=== PATIENT | female | born 1930 | race Caucasian/White ===

== ENCOUNTER 2019-03-15 21:56 | Inpatient (IN) | payer MEDICARE ==
[~2019-03-15] VITALS: Ht 154.9 cm; Wt 48.2 kg
[~2019-03-15 21:56] MED LIST: DIGO25TA PO; LASIX PO; LIPITOR PO; MONOPRIL PO; TOPROL PO; XARE20TA PO
[2019-03-15] MEDS ORDERED: AMLO10TA5 PO (22:25)
[2019-03-15] MEDS ORDERED: TORS10TA3 PO (22:25)
[2019-03-15] MEDS ORDERED: FOSI20TA79 GT (22:25)
[2019-03-15] MEDS ORDERED: METO1TAB7 PO (22:25)
[2019-03-15 22:36] LABS: BASO % 0.3 % (0.0-1.0); EOS # 0.1 10^3/uL (0.0-0.50); EOS % 0.7 % (0.0-3.0); HEMATOCRIT 35.3 % (36.0-47.0); HEMOGLOBIN 11.3 g/dl (12.0-15.5); LYMPH # 0.9 10^3/uL (1.5-4.5); LYMPH % 9.9 % (24.0-44.0); MEAN CORPUSCULAR HEMOGLOBIN 29.6 pg (27.0-33.0); MEAN CORPUSCULAR VOLUME 92.4 fl (80.0-96.0); MONO # 0.9 10^3/uL (0.0-0.8); NEUTROPHILS # 6.9 10^3/uL (1.8-7.7); NEUTROPHILS % 78.9 % (36.0-66.0); PLATELET COUNT, AUTOMATED 172 10^3/uL (150-450); RED BLOOD COUNT 3.82 10^6/uL (4.00-5.40); WHITE BLOOD COUNT 8.8 10^3/uL (4.0-10.0)
[2019-03-15] MEDS ORDERED: LABETALOL HCL 100 MG/20 ML VIAL IV STA (22:43)
[2019-03-15] MEDS ORDERED: LIPI20TA PO (23:02)
[2019-03-15] MEDS ORDERED: DIGO0.12 PO (23:03)
[2019-03-15] MEDS ORDERED: ACET-683 PO (23:05)
[2019-03-15 23:07] LABS: BLOOD UREA NITROGEN 17 MG/DL (7-18); CALCIUM LEVEL 8.5 MG/DL (8.8-10.2); CARBON DIOXIDE LEVEL 29 MEQ/L (21-32); CHLORIDE LEVEL 109 MEQ/L (98-107); CK-MB VALUE MASS 1.6 NG/ML (<3.6); CPK CREATINE PHOSPHOKINASE 50 U/L (26-192); CREATININE FOR GFR 0.86 MG/DL (0.55-1.30); GLOMERULAR FILTRATION RATE > 60.0 (>32); GLUCOSE, FASTING 117 MG/DL (70-100); POTASSIUM SERUM 4.6 MEQ/L (3.5-5.1); SODIUM LEVEL 140 MEQ/L (136-145); TROPONIN I < 0.02 NG/ML (< 0.10)
[2019-03-15 23:13] LABS: DIGOXIN LEVEL 1.3 NG/ML (0.5-2.0)
[2019-03-16] MEDS ORDERED: D5W IV ONE ×2
[2019-03-16] MEDS ORDERED: TRIMETHOPRIM IV ONE ×2
[2019-03-16] MEDS ORDERED: SULFAMETHOXAZOLE IV ONE ×2
[2019-03-16] MEDS ORDERED: METO1TAB7 PO (00:02)
[2019-03-16] MEDS ORDERED: ATOR1TAB21 PO (00:02)
[2019-03-16] MEDS ORDERED: ACET-897 PO (00:02)
[2019-03-16] MEDS ORDERED: XARE20TA PO (00:02)
[2019-03-16] MEDS ORDERED: FOSI20TA79 PO (00:02)
[2019-03-16] MEDS ORDERED: DIGO0.12 PO (00:02)
[2019-03-16] MEDS ORDERED: AMLO10TA5 PO (00:02)
[2019-03-16] MEDS ORDERED: TORS20TA2 PO (00:02)
[2019-03-16] MEDS ORDERED: cloNIDine 0.1 MG TAB PO ONE (00:15)
--- NOTE | 2019-03-16 00:29 | REPVR ---
EXAM: CT Chest Without Contrast EXAM DATE/TIME: 03/15/2019 11:32 PM CLINICAL HISTORY: 88 years old, female; Signs and symptoms; Shortness of breath; Additional info: Pleural effusion vs mass TECHNIQUE: Imaging protocol: Axial computed tomography images of the chest without intravenous contrast. Coronal and sagittal reformatted images were created and reviewed. 3D rendering: MIP reconstructed images were created and reviewed. Radiation optimization: All CT scans at this facility use at least one of these dose optimization techniques: automated exposure control; mA and/or kV adjustment per patient size (includes targeted exams where dose is matched to clinical indication); or iterative reconstruction. COMPARISON: No relevant prior studies available. FINDINGS: Tubes, catheters and devices: Pacemaker in position. Lungs: There is pulmonary hyperinflation. Minimal diffuse bullous change with coarse interstitium and minimal fibro-atelectatic change extending into the lingula. There are minimal patchy infiltrates in the left lower lobe and minimal scattered bronchiectasis. There is minimal biapical scar. Pleural space: Minimal bilateral pleural effusions, left greater than right. Heart: Coronary artery calcifications are present. The left atrium measures 5.4 cm in its AP dimension. Aorta: Unremarkable. No aortic aneurysm. Lymph nodes: Unremarkable. No enlarged lymph nodes. Bones/joints: Wedge configuration T6-T8 which appear to be chronic. There is slight dextroscoliosis and mild kyphosis of the thoracic spine. Old fracture of the right 4th rib posterolaterally. Soft tissues: Unremarkable. IMPRESSION: 1. Pulmonary hyperinflation with minimal diffuse bullous change and coarse interstitium consistent with COPD. There is minimal fibro-atelectatic change extending into the lingula and there is minimal scattered bronchiectasis. 2. Minimal patchy infiltrates in the left lower lobe consistent with pneumonia. 3. Minimal bilateral pleural effusions, cardiomegaly and pacemaker in position and some degree of congestive failure is not excluded. Electronically signed by: Simón Sofia On 03/16/2019 00:28:58 AM
[2019-03-16] MEDS ORDERED: ACETAMINOPHEN TAB 650MG DOSE (2X325MG) PO PRN (00:45)
[2019-03-16] MEDS ORDERED: ACETAMINOPHEN 500 MG TAB PO PRN (00:45)
[2019-03-16] MEDS: METOPROLOL SUCC (TopROL XL) 50MG **XL** TAB PO SCH ×3 (01:09→21:22)
[2019-03-16] MEDS: ATORVASTATIN 20 MG TAB PO SCH ×2 (01:09→21:21)
[2019-03-16] MEDS: amLODIPine 10 MG TAB PO SCH ×2 (01:09→21:22)
[2019-03-16 01:50] VITALS: BP 160/80
[2019-03-16] MEDS: CLINDAMYCIN 600 MG in APPROPRIATE DILUENT 1 EA IV SCH ×4 (02:53→17:58)
[2019-03-16] MEDS: FOSINOPRIL 20 MG TAB PO SCH ×3 (02:53→21:23)
[2019-03-16 06:00] VITALS: BP 159/58
--- NOTE | 2019-03-16 07:10 | HPE ---
DATE OF ADMISSION: 03/16/2019 PRIMARY CARE PROVIDER: Alexx Keith NP CHIEF COMPLAINT: Exertional shortness of breath and right lower extremity infection. HISTORY OF PRESENT ILLNESS: The patient is an 88-year-old white female with several chronic medical conditions listed below who presented to the ER for evaluation of the above complaints. 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 For that she went to urgent care and she was told she had a viral upper respiratory infection (URI) and recommended treating symptomatically. She was not given any antibiotics. Gradually, her symptoms resolved. However, in the last 1-2 weeks she started having difficulty breathing when she moved around and had some cough without production of phlegm. Denies any fever or any chills. She also stated she had injury to her right lower extremity which is infected and decided to come to the ER for further evaluation. In the ER, she had a chest x-ray as well as chest CT done which demonstrated she has a left pleural effusion. Otherwise, her workup was not significant. The medicine was called for admission. REVIEW OF SYSTEMS: Denies fevers. No chills. No headache. No blurry vision. Positive shortness of breath. Positive coughing but no phlegm. No chest pain. No abdominal pain. No nausea. No vomiting. No diarrhea. No tingling, numbness or weakness of the arms or lower extremities. All other systems were reviewed, but were negative. PAST MEDICAL HISTORY: 1. Hypertension. 2. Chronic atrial fibrillation on Xarelto. PAST SURGICAL HISTORY: Pacemaker insertion. Benign breast cyst removed. Left ankle fracture surgery. ALLERGIES: 1. PENICILLIN. SOCIAL HISTORY: No tobacco use. No alcohol abuse. No illicit drug abuse. 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 She never . She does not have children. She is a F[employer]. FAMILY HISTORY: Most family members are and no family history of diabetes or chronic disease. MEDICATIONS: Reviewed. PHYSICAL EXAMINATION: VITAL SIGNS: Temperature 98.1, heart rate 50, blood pressure 160/72, oxygen saturation 95% on room air. GENERAL: She is awake, alert and oriented times three. She is not in acute distress. HEENT: Atraumatic. Pupils equal, round, and reactive to light. No jaundice. Extraocular muscles intact. Ears, nose and throat are normal. Mouth mucous moist. NECK: No jugular venous distention (JVD). No bruits. LUNGS: Clear and she has some left basilar crackles, but no wheezing. HEART: S1, S2, not tachycardic, no murmur, regular. ABDOMEN: Soft. Bowel sounds positive. Nontender. LOWER EXTREMITIES: Left leg is normal. There is erythema and swelling of the right lower extremity and also there is a small skin superficial wound on her right lower extremity close to her ankle area, but no evidence of abscess. SKIN: No rash. NEUROLOGIC: Nonfocal. PSYCHIATRIC: No acute psychosis. DIAGNOSTIC LABORATORY STUDIES: Including the following CBC with differential WBC 7.8, hemoglobin and hematocrit 11.3/35.3, platelets 172. Sodium 140, potassium 4.2, chloride 109, bicarb 29, BUN 17, creatinine 0.9, glucose 117. Chest x-ray and chest CT reviewed. IMPRESSION: 1. Right lower extremity cellulitis. 2. Left pleural effusion. 3. History of high blood pressure. 4. History of atrial fibrillation which is rate controlled. PLAN: Patient will be admitted to the medical/surgical floor. I will treat her with IV clindamycin for her right lower extremity cellulitis and will continue her home medications. Regarding her left pleural effusion, the etiology is not clear, may be related to pneumonia and she may need a thoracentesis. KIMD
--- NOTE | 2019-03-16 08:26 | REP ---
PORTABLE CHEST X-RAY: Single view. HISTORY: Dyspnea and cough. COMPARISON CHEST X-RAY: January 26, 2008. FINDINGS: There is blunting of the left lateral pleural angle indicating a small to moderate left pleural effusion. This is new from the 2008 prior radiograph. A bipolar pacemaker remains in the right heart via the left side. Mild cardiomegaly is observed. Mitral annular calcification is seen. EKG electrodes are noted. The right pleural angle is sharp. Pulmonary vascular cephalization is seen. There are old healed rib fractures on the right superiorly. IMPRESSION: New pleural angle blunting on the left. Pacemaker and mild cardiomegaly. Cephalization. Electronically Signed by Pankaj Alvarez MD 03/16/2019 03:00 P
[2019-03-16 08:37] LABS: BASO % 0.3 % (0.0-1.0); EOS % 0.1 % (0.0-3.0); HEMATOCRIT 33.5 % (36.0-47.0); HEMOGLOBIN 10.8 g/dl (12.0-15.5); LYMPH # 0.4 10^3/uL (1.5-4.5); LYMPH % 5.4 % (24.0-44.0); MEAN CORPUSCULAR HEMOGLOBIN 29.6 pg (27.0-33.0); MEAN CORPUSCULAR HGB CONC 32.2 g/dl (32.0-36.5); MEAN CORPUSCULAR VOLUME 91.8 fl (80.0-96.0); MONO # 0.6 10^3/uL (0.0-0.8); MONO % 7.5 % (0.0-5.0); NEUTROPHILS # 6.9 10^3/uL (1.8-7.7); NEUTROPHILS % 86.2 % (36.0-66.0); PLATELET COUNT, AUTOMATED 160 10^3/uL (150-450); RED BLOOD COUNT 3.65 10^6/uL (4.00-5.40)
[2019-03-16] MEDS: DOCUSATE SODIUM 100 MG CAP PO SCH ×3 (08:48→21:00)
[2019-03-16] MEDS: DIGOXIN 0.125 MG TAB PO SCH (08:48)
[2019-03-16 08:56] LABS: ERYTHROCYTE SEDIMENTATION RATE 16 mm/hr (0-42)
[2019-03-16] MEDS ORDERED: TORSEMIDE 20 MG TAB PO SCH (09:00)
[2019-03-16] MEDS ORDERED: LEVALBUTEROL 1.25 MG/0.5 ML CONCENTRATE NEB NEB ONE (09:00)
[2019-03-16 09:10] LABS: C REACTIVE PROTEIN QUANTITATIV 0.62 MG/DL (0.00-0.30); CALCIUM LEVEL 8.6 MG/DL (8.8-10.2); CREATININE FOR GFR 1.04 MG/DL (0.55-1.30); GLOMERULAR FILTRATION RATE 53.1 (>32); POTASSIUM SERUM 4.7 MEQ/L (3.5-5.1)
[2019-03-16] MEDS ORDERED: LEVALBUTEROL 1.25 MG/0.5 ML CONCENTRATE NEB INH PRN (10:00)
--- NOTE | 2019-03-16 10:14 | IPNPDOC ---
Date Seen The patient was seen on 03/16/19. Progress Note SUBJECTIVE: Pt c/o cough that is difficult to expectorate and chills. no fevers overnight. s he also has had recent h/o dysphagia to her serbian toast this morning, and "some pills." denies any weight loss, hematemesis, or changes in appetite. no prior barajas for dysphagia. Denies fevers. No chills. No headache. No blurry vision. Positive shortness of breath. Positive coughing but no phlegm. No chest pain. No abdominal pain. No nausea. No vomiting. No diarrhea. No tingling, numbness or weakness of the arms or lower extremities. All other systems were reviewed, but were negative. PHYSICAL EXAMINATION: VITAL SIGNS: pls see below GENERAL: She is awake, alert and oriented times three. She is not in acute distress. HEENT: Atraumatic. Pupils equal, round, and reactive to light. No jaundice. Extraocular muscles intact. Ears, nose and throat are normal. Mouth mucous moist. NECK: No jugular venous distention (JVD). No bruits. LUNGS: Clear and she has some left basilar crackles, but no wheezing. HEART: S1, S2, not tachycardic, no murmur, regular. ABDOMEN: Soft. Bowel sounds positive. Nontender. LOWER EXTREMITIES: Left leg is normal. There is erythema and swelling of the right lower extremity and also there is a small skin superficial wound on her right lower extremity close to her ankle area, but no evidence of abscess. SKIN: No rash. LABORATORY DATA, IMAGING STUDIES, MICROBIOLOGY: PLS SEE BELOW ASSESSMENT AND PLAN: The patient is an 88-year-old white female with several chronic medical conditions listed below who presented to the ER for evaluation of the above complaints. 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 For that she went to urgent care and she was told she had a viral upper respiratory infection (URI) and recommended treating symptomatically. She was not given any antibiotics. Gradually, her symptoms resolved. However, in the last 1-2 weeks she started having difficulty breathing when she moved around and had some cough without production of phlegm. Denies any fever or any chills. She also stated she had injury to her right lower extremity which is infected and decided to come to the ER for further evaluation. In the ER, she had a chest x-ray as well as chest CT done which demonstrated she has a left pleural effusion. Otherwise, her workup was not significant. The medicine was called for admission. Right lower extremity cellulitis. admitted to the medical/surgical floor. IV clindamycin for her right lower extremity Left pleural effusion. will check and echo sputum cx, respiratory panel ARSALAN trial of lasix Bronchiectasis with difficulty expectorating acapella nebs sputum cx dysphagia to solids pt refused esophagram for now check bedside swallow eval check ARSALAN History of high blood pressure. resume home meds History of atrial fibrillation which is rate controlled. resume home meds DS2: [~ rep ct labl] VS, I&O, 24H, Fishbone Vital Signs/I&O Vital Signs Date Time Temp Pulse Resp B/P (MAP) Pulse Ox O2 Delivery O2 Flow Rate FiO2 03/16/19 08:48 159/58 03/16/19 08:48 58 03/16/19 06:00 98.1 17 86 03/16/19 01:15 Room Air I&O- Last 24 Hours up to 6 AM 03/16/19 06:00 Intake Total 0 ml Output Total 150 ml Balance -150 ml Laboratory Data 24H LABS Laboratory Tests 2 03/15/19 22:31: Immature Granulocyte % (Auto) 0.2, White Blood Count 8.8, Red Blood Count 3.82L, Hemoglobin 11.3L, Hematocrit 35.3L, Mean Corpuscular Volume 92.4, Mean Corpuscular Hemoglobin 29.6, Mean Corpuscular Hemoglobin Concent 32.0, Red Cell Distribution Width 13.8, Platelet Count 172, Neutrophils (%) (Auto) 78.9H, Lymphocytes (%) (Auto) 9.9L, Monocytes (%) (Auto) 10.0H, Eosinophils (%) (Auto) 0.7, Basophils (%) (Auto) 0.3, Neutrophils # (Auto) 6.9, Lymphocytes # (Auto) 0.9L, Monocytes # (Auto) 0.9H, Eosinophils # (Auto) 0.1, Basophils # (Auto) 0.0, Nucleated Red Blood Cells % (auto) 0.0, Anion Gap 2L, Glomerular Filtration Rate > 60.0, Blood Urea Nitrogen 17, Creatinine 0.86, Sodium Level 140, Potassium Level 4.6, Chloride Level 109H, Carbon Dioxide Level 29, Calcium Level 8.5L, Total Creatine Kinase 50, Creatine Kinase MB 1.6, Creatine Kinase MB Relative Index 3.20, Troponin I < 0.02, Digoxin Level 1.3 03/16/19 08:25: Immature Granulocyte % (Auto) 0.5, White Blood Count 8.0, Red Blood Count 3.65L, Hemoglobin 10.8L, Hematocrit 33.5L, Mean Corpuscular Volume 91.8, Mean Corpuscular Hemoglobin 29.6, Mean Corpuscular Hemoglobin Concent 32.2, Red Cell Distribution Width 13.6, Platelet Count 160, Neutrophils (%) (Auto) 86.2H, Lymphocytes (%) (Auto) 5.4L, Monocytes (%) (Auto) 7.5H, Eosinophils (%) (Auto) 0.1, Basophils (%) (Auto) 0.3, Neutrophils # (Auto) 6.9, Lymphocytes # (Auto) 0.4L, Monocytes # (Auto) 0.6, Eosinophils # (Auto) 0.0, Basophils # (Auto) 0.0, Nucleated Red Blood Cells % (auto) 0.0, Anion Gap 6L, Glomerular Filtration Rate 53.1, Blood Urea Nitrogen 16, Creatinine 1.04, Sodium Level 135L, Potassium Level 4.7, Chloride Level 103, Carbon Dioxide Level 26, Calcium Level 8.6L, Er ythrocyte Sedimentation Rate 16, C-Reactive Protein, Quantitative 0.62H CBC/BMP Laboratory Tests 03/15/19 22:31 Red Blood Count 3.82 L, Mean Corpuscular Volume 92.4, Mean Corpuscular Hemoglobin 29.6, Mean Corpuscular Hemoglobin Concent 32.0, Red Cell Distribution Width 13.8, Neutrophils (%) (Auto) 78.9 H, Lymphocytes (%) (Auto) 9.9 L, Monocytes (%) (Auto) 10.0 H, Eosinophils (%) (Auto) 0.7, Basophils (%) (Auto) 0.3, Neutrophils # (Auto) 6.9, Lymphocytes # (Auto) 0.9 L, Monocytes # (Auto) 0.9 H, Eosinophils # (Auto) 0.1, Basophils # (Auto) 0.0, Calcium Level 8.5 L, Total Creatine Kinase 50 03/16/19 08:25 Red Blood Count 3.65 L, Mean Corpuscular Volume 91.8, Mean Corpuscular Hemoglobin 29.6, Mean Corpuscular Hemoglobin Concent 32.2, Red Cell Distribution Width 13.6, Neutrophils (%) (Auto) 86.2 H, Lymphocytes (%) (Auto) 5.4 L, Monocytes (%) (Auto) 7.5 H, Eosinophils (%) (Auto) 0.1, Basophils (%) (Auto) 0.3, Neutrophils # (Auto) 6.9, Lymphocytes # (Auto) 0.4 L, Monocytes # (Auto) 0.6, Eosinophils # (Auto) 0.0, Basophils # (Auto) 0.0, Calcium Level 8.6 L Microbiology Microbiology 03/15/19 Blood Culture, Received Pending 03/15/19 Gram Stain - Final, Resulted 03/15/19 Wound Culture, Resulted Pending ALEX YOUNG MD Mar 16, 2019 10:12
[2019-03-16] MEDS ORDERED: OXYMETAZOLINE NASAL SPRAY (AFRIN) PRN (10:45)
[2019-03-16] MEDS ORDERED: MOXIFLOXACIN 400 MG TAB PO ONE (11:15)
--- NOTE | 2019-03-16 13:22 | ECGEPIP ---
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
[2019-03-16 14:00] VITALS: BP 121/43
--- NOTE | 2019-03-16 14:58 | NUR ---
Recommend level 2 mechanically altered (NDD) solids and thin liquids. Compensatory small bites & liquid wash. Recommend Flexible Endoscopic Evaluation of Swallowing (FEES) to assess for pharyngeal dysphagia w/ 2x Afrin spray per nares for discomfort as determined appropriate by SHIPPING AND RECEIVING SPECIALIST. If pt discharged from facility prior to completion, please refer for outpatient FEES evaluation. Addendum: 03/16/[address] [facility] Amended: Links added.
[2019-03-16] MEDS: RIVAROXABAN 20 MG TAB (XARELTO) PO SCH (17:57)
[2019-03-16] MEDS: FUROSEMIDE 20 MG/2 ML VIAL (J1940) IV SCH (17:58)
[2019-03-16 22:00] VITALS: BP 129/43
[2019-03-17] MEDS: CLINDAMYCIN 600 MG in APPROPRIATE DILUENT 1 EA IV SCH ×4 (01:50→18:32)
[2019-03-17 05:57] LABS: HEMATOCRIT 29.6 % (36.0-47.0); HEMOGLOBIN 9.8 g/dl (12.0-15.5); MEAN CORPUSCULAR HEMOGLOBIN 29.4 pg (27.0-33.0); MEAN CORPUSCULAR HGB CONC 33.1 g/dl (32.0-36.5); MEAN CORPUSCULAR VOLUME 88.9 fl (80.0-96.0); PLATELET COUNT, AUTOMATED 154 10^3/uL (150-450); RED BLOOD COUNT 3.33 10^6/uL (4.00-5.40); WHITE BLOOD COUNT 6.2 10^3/uL (4.0-10.0)
[2019-03-17 06:00] VITALS: BP 130/45
[2019-03-17 06:25] LABS: CREATININE FOR GFR 1.21 MG/DL (0.55-1.30); GLOMERULAR FILTRATION RATE 44.6 (>32); POTASSIUM SERUM 4.5 MEQ/L (3.5-5.1)
[2019-03-17] MEDS: MOXIFLOXACIN 400 MG TAB PO SCH (06:26)
--- NOTE | 2019-03-17 07:17 | IPNPDOC ---
Date Seen The patient was seen on 03/17/19. Progress Note SUBJECTIVE: c/o thick brown sputum yesterday. no cough,fever or chills today. on avelox for pneumonia and clinda for Right leg cellulitis with ulcer appearing purulent. no c/o sob. PHYSICAL EXAMINATION: VITAL SIGNS: pls see below GENERAL: She is awake, alert and oriented times three. She is not in acute distress. HEENT: Atraumatic. Pupils equal, round, and reactive to light. No jaundice. Extraocular muscles intact. Ears, nose and throat are normal. Mouth mucous moist. NECK: No jugular venous distention (JVD). No bruits. LUNGS: Clear and she has some left basilar crackles, but no wheezing. HEART: S1, S2, not tachycardic, no murmur, regular. ABDOMEN: Soft. Bowel sounds positive. Nontender. LOWER EXTREMITIES: Left leg is normal. There is erythema and swelling of the right lower extremity and also there is a small skin superficial wound on her right lower extremity close to her ankle area, but no evidence of abscess. SKIN: No rash. LABORATORY DATA, IMAGING STUDIES, MICROBIOLOGY: PLS SEE BELOW CT chest 03/15/19: Tubes, catheters and devices: Pacemaker in position. Lungs: There is pulmonary hyperinflation. Minimal diffuse bullous change with coarse interstitium and minimal fibro-atelectatic change extending into the lingula. There are minimal patchy infiltrates in the left lower lobe and minimal scattered bronchiectasis. There is minimal biapical scar. Pleural space: Minimal bilateral pleural effusions, left greater than right. Heart: Coronary artery calcifications are present. The left atrium measures 5.4 cm in its AP dimension. Aorta: Unremarkable. No aortic aneurysm. Lymph nodes: Unremarkable. No enlarged lymph nodes. Bones/joints: Wedge configuration T6-T8 which appear to be chronic. There is slight dextroscoliosis and mild kyphosis of the thoracic spine. Old fracture of the right 4th rib posterolaterally. Soft tissues: Unremarkable. IMPRESSION: 1. Pulmonary hyperinflation with minimal diffuse bullous change and coarse interstitium consistent with COPD. There is minimal fibro-atelectatic change extending into the lingula and there is minimal scattered bronchiectasis. 2. Minimal patchy infiltrates in the left lower lobe consistent with pneumonia. 3. Minimal bilateral pleural effusions, cardiomegaly and pacemaker in position and some degree of congestive failure is not excluded. Electronically signed by: Amelia Perez On 03/16/2019 00:28:58 AM DD: AMELIA PEREZ MD 03/15/19 2332 DT: CHENG 03/16/19 0028 DS: CARIE 03/16/19 0028 ASSESSMENT AND PLAN: The patient is an 88-year-old white female with several chronic medical conditions listed below who presented to the ER for evaluation of the above complaints. 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 For that she went to urgent care and she was told she had a viral upper respiratory infection (URI) and recommended treating symptomatically. She was not given any antibiotics. Gradually, her symptoms resolved. However, in the last 1-2 weeks she started having difficulty breathing when she moved around and had some cough without production of phlegm. Denies any fever or any chills. She also stated she had injury to her right lower extremity which is infected and decided to come to the ER for further evaluation.In the ER, she had a chest x-ray as well as chest CT done which demonstrated she has a left pleural effusion. Otherwise, her workup was not significant. The medicine was called for admission. Right lower extremity cellulitis/ right ulcer. admitted to the medical/surgical floor. IV clindamycin for her right lower extremity community acquired pneumonia: checked sputum cx, respiratory panel, urine legionella, urine strep ag avelox due to pcn allergy bacid and yogurt to prevent cdiff. Left pleural effusion. will check and echo sputum cx, respiratory panel ARSALAN trial of lasix Bronchiectasis with difficulty expectorating acapella nebs sputum cx dysphagia to solids pt refused esophagram for now check bedside swallow eval check ARSALAN History of high blood pressure. resume home meds History of atrial fibrillation which is rate controlled. resume home meds VS, I&O, 24H, Fishbone Vital Signs/I&O Vital Signs Date Time Temp Pulse Resp B/P (MAP) Pulse Ox O2 Delivery O2 Flow Rate FiO2 03/16/19 22:00 97.8 56 18 129/43 (71) 97 03/16/19 14:00 2.0 03/16/19 01:15 Room Air I&O- Last 24 Hours up to 6 AM 03/17/19 06:00 Intake Total 440 ml Output Total 1390 ml Balance -950 ml Laboratory Data 24H LABS Laboratory Tests 2 03/16/19 08:25: Immature Granulocyte % (Auto) 0.5, White Blood Count 8.0, Red Blood Count 3.65L, Hemoglobin 10.8L, Hematocrit 33.5L, Mean Corpuscular Volume 91.8, Mean Corpuscular Hemoglobin 29.6, Mean Corpuscular Hemoglobin Concent 32.2, Red Cell Distribution Width 13.6, Platelet Count 160, Neutrophils (%) (Auto) 86.2H, Lymphocytes (%) (Auto) 5.4L, Monocytes (%) (Auto) 7.5H, Eosinophils (%) (Auto) 0.1, Basophils (%) (Auto) 0.3, Neutrophils # (Auto) 6.9, Lymphocytes # (Auto) 0.4L, Monocytes # (Auto) 0.6, Eosinophils # (Auto) 0.0, Basophils # (Auto) 0.0, Nucleated Red Blood Cells % (auto) 0.0, Erythrocyte Sedimentation Rate 16, Anion Gap 6L, Glomerular Filtration Rate 53.1, Blood Urea Nitrogen 16, Creatinine 1.04, Sodium Level 135L, Potassium Level 4.7, Chloride Level 103, Carbon Dioxide Level 26, Calcium Level 8.6L, C-Reactive Protein, Quantitative 0.62H 03/16/19 11:29: 03/17/19 05:44: Nucleated Red Blood Cells % (auto) 0.0, Anion Gap 3L, Glomerular Filtration Rate 44.6, Blood Urea Nitrogen 22H, Creatinine 1.21, Sodium Level 138, Potassium Level 4.5, Chloride Level 105, Carbon Dioxide Level 30, Calcium Level 8.0L CBC/BMP Laboratory Tests 03/16/19 08:25 Red Blood Count 3.65 L, Mean Corpuscular Volume 91.8, Mean Corpuscular Hemoglobin 29.6, Mean Corpuscular Hemoglobin Concent 32.2, Red Cell Distribution Width 13.6, Neutrophils (%) (Auto) 86.2 H, Lymphocytes (%) (Auto) 5.4 L, Monocytes (%) (Auto) 7.5 H, Eosinophils (%) (Auto) 0.1, Basophils (%) (Auto) 0.3, Neutrophils # (Auto) 6.9, Lymphocytes # (Auto) 0.4 L, Monocytes # (Auto) 0.6, Eosinophils # (Auto) 0.0, Basophils # (Auto) 0.0, Calcium Level 8.6 L 03/17/19 05:44 Red Blood Count 3.33 L, Mean Corpuscular Volume 88.9, Mean Corpuscular Hemoglobin 29.4, Mean Corpuscular Hemoglobin Concent 33.1, Red Cell Distribution Width 13.7, Calcium Level 8.0 L Microbiology Microbiology 03/15/19 Blood Culture - Preliminary, Resulted No growth after 24 hours . All specim... 03/16/19 Respiratory Virus Panel (PCR) (MIGUELANGEL) - Final, Complete 03/15/19 Gram Stain - Final, Resulted 03/15/19 Wound Culture, Resulted Pending ALEX YOUNG MD Mar 17, 2019 06:38
[2019-03-17] MEDS: METOPROLOL SUCC (TopROL XL) 50MG **XL** TAB PO SCH ×2 (09:00→21:00)
[2019-03-17] MEDS: FUROSEMIDE 20 MG/2 ML VIAL (J1940) IV SCH ×3 (09:00→17:45)
[2019-03-17] MEDS: DIGOXIN 0.125 MG TAB PO SCH (09:40)
[2019-03-17] MEDS: DOCUSATE SODIUM 100 MG CAP PO SCH ×2 (09:40→21:00)
[2019-03-17] MEDS: FOSINOPRIL 20 MG TAB PO SCH ×2 (09:41→21:48)
[2019-03-17] MEDS: RIVAROXABAN 20 MG TAB (XARELTO) PO SCH (17:44)
[2019-03-17 21:27] VITALS: BP 135/39
[2019-03-17] MEDS: amLODIPine 10 MG TAB PO SCH (21:48)
[2019-03-17] MEDS: ATORVASTATIN 20 MG TAB PO SCH (21:48)
[2019-03-17 22:00] VITALS: BP 135/39
[2019-03-18] MEDS: CLINDAMYCIN 600 MG in APPROPRIATE DILUENT 1 EA IV SCH ×2 (00:53→06:09)
[2019-03-18 06:00] VITALS: BP 134/42
[2019-03-18] MEDS: MOXIFLOXACIN 400 MG TAB PO SCH (06:09)
[2019-03-18] MEDS: DIGOXIN 0.125 MG TAB PO SCH (08:25)
[2019-03-18] MEDS: DOCUSATE SODIUM 100 MG CAP PO SCH ×2 (08:26→20:31)
[2019-03-18] MEDS: METOPROLOL SUCC (TopROL XL) 50MG **XL** TAB PO SCH ×2 (08:27→20:37)
[2019-03-18] MEDS: FOSINOPRIL 20 MG TAB PO SCH ×2 (08:27→20:38)
[2019-03-18] MEDS ORDERED: predniSONE 20 MG TAB PO ONE (08:30)
[2019-03-18] MEDS ORDERED: diphenhydrAMINE 25 MG CAP PO ONE (08:30)
[2019-03-18] MEDS: BACTRIM 160MG/800MG DS TAB PO SCH (09:32)
--- NOTE | 2019-03-18 10:10 | IPNPDOC ---
Date Seen The patient was seen on 03/18/19. Progress Note SUBJECTIVE: Pt c/o worsening tremors after completing clindamycin, but no sob. pt c/o lips feeling swollen, but no signs of angioedema or stridor. clinda discontinued, and pt was given benadryl and prednisone. RN aware of current complaints. Bactrim given for leg cellulitis renally adjusted . Pt c/o fatigue and weakness. PT and ARU consulted to help improve her mobility. c/o thick brown sputum on 03/16/19 but none since. no cough,fever or chills today. on avelox for pneumonia and s/p clinda for Right leg cellulitis with ulcer being dressed daily. no c/o sob. PHYSICAL EXAMINATION: VITAL SIGNS: pls see below GENERAL: She is awake, alert and oriented times three. She is not in acute distress. HEENT: Atraumatic. Pupils equal, round, and reactive to light. No jaundice. Extraocular muscles intact. Ears, nose and throat are normal. Mouth mucous moist. NECK: No jugular venous distention (JVD). No bruits. LUNGS: Clear and she has some left basilar crackles, but no wheezing. HEART: S1, S2, not tachycardic, no murmur, regular. ABDOMEN: Soft. Bowel sounds positive. Nontender. LOWER EXTREMITIES: Left leg is normal. There is erythema and swelling of the right lower extremity and also there is a small skin superficial wound on her right lower extremity close to her ankle area, but no evidence of abscess. SKIN: No rash. LABORATORY DATA, IMAGING STUDIES, MICROBIOLOGY: PLS SEE BELOW CT chest 03/15/19: Tubes, catheters and devices: Pacemaker in position. Lungs: There is pulmonary hyperinflation. Minimal diffuse bullous change with coarse interstitium and minimal fibro-atelectatic change extending into the lingula. There are minimal patchy infiltrates in the left lower lobe and minimal scattered bronchiectasis. There is minimal biapical scar. Pleural space: Minimal bilateral pleural effusions, left greater than right. Heart: Coronary artery calcifications are present. The left atrium measures 5.4 cm in its AP dimension. Aorta: Unremarkable. No aortic aneurysm. Lymph nodes: Unremarkable. No enlarged lymph nodes. Bones/joints: Wedge configuration T6-T8 which appear to be chronic. There is slight dextroscoliosis and mild kyphosis of the thoracic spine. Old fracture of the right 4th rib posterolaterally. Soft tissues: Unremarkable. IMPRESSION: 1. Pulmonary hyperinflation with minimal diffuse bullous change and coarse interstitium consistent with COPD. There is minimal fibro-atelectatic change extending into the lingula and there is minimal scattered bronchiectasis. 2. Minimal patchy infiltrates in the left lower lobe consistent with pneumonia. 3. Minimal bilateral pleural effusions, cardiomegaly and pacemaker in position and some degree of congestive failure is not excluded. Electronically signed by: Amelia Perez On 03/16/2019 00:28:58 AM DD: AMELIA PEREZ MD 03/15/19 2332 DT: CHENG 03/16/19 0028 DS: CARIE 03/16/19 0028 ASSESSMENT AND PLAN: The patient is an 88-year-old white female with several chronic medical conditions listed below who presented to the ER for evaluation of the above complaints. 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 For that she went to urgent care and she was told she had a viral upper respiratory infection (URI) and recommended treating symptomatically. She was not given any antibiotics. Gradually, her symptoms resolved. However, in the last 1-2 weeks she started having difficulty breathing when she moved around and had some cough without production of phlegm. Denies any fever or any chills. She also stated she had injury to her right lower extremity which is infected and decided to come to the ER for further evaluation.In the ER, she had a chest x-ray as well as chest CT done which demonstrated she has a left pleural effusion. Otherwise, her workup was not significant. The medicine was called for admission. Right lower extremity cellulitis/ right ulcer. admitted to the medical/surgical floor. s/p IV clindamycin for her right lower extremity pt convinced that clinda causes her tremors to worsen, therefore, discontinued 03/18/19 on bactrim renally dosed 03/18/19 community acquired pneumonia: checked sputum cx, respiratory panel, urine legionella, urine strep ag avelox due to pcn allergy bacid and yogurt to prevent cdiff. Left pleural effusion. improved with lasix. sputum cx, respiratory panel ARSALAN s/p trial of lasix Bronchiectasis with difficulty expectorating acapella nebs sputum cx dysphagia to solids pt refused esophagram for now checked bedside swallow eval checked ARSALAN History of high blood pressure. resume home meds History of atrial fibrillation which is rate controlled. resume home meds VS, I&O, 24H, Fishbone Vital Signs/I&O Vital Signs Date Time Temp Pulse Resp B/P (MAP) Pulse Ox O2 Delivery O2 Flow Rate FiO2 03/17/19 22:00 97.9 65 18 135/39 (71) 96 03/16/19 14:00 2.0 03/16/19 01:15 Room Air I&O- Last 24 Hours up to 6 AM 03/18/19 06:00 Intake Total 490 ml Output Total 1470 ml Balance -980 ml Laboratory Data Microbiology Microbiology 03/15/19 Blood Culture - Preliminary, Resulted No Growth after 48 hours. All Specime... 03/16/19 Respiratory Virus Panel (PCR) ([facility]) - Final, Complete 03/15/19 Gram Stain - Final, Resulted 03/15/19 Wound Culture, Resulted Pending ALEX YOUNG MD Mar 18, 2019 06:19
[2019-03-18 14:00] VITALS: BP 138/46
[2019-03-18] MEDS: RIVAROXABAN 20 MG TAB (XARELTO) PO SCH (17:05)
[2019-03-18] MEDS: ATORVASTATIN 20 MG TAB PO SCH (20:31)
[2019-03-18] MEDS: amLODIPine 10 MG TAB PO SCH (20:39)
[2019-03-18 22:00] VITALS: BP 132/40
[2019-03-19 05:45] VITALS: BP 149/125
[2019-03-19 06:00] VITALS: BP 142/48
[2019-03-19] MEDS: MOXIFLOXACIN 400 MG TAB PO SCH (06:04)
[2019-03-19] MEDS: BACTRIM 160MG/800MG DS TAB PO SCH (09:16)
[2019-03-19] MEDS: FOSINOPRIL 20 MG TAB PO SCH ×2 (09:16→20:11)
[2019-03-19] MEDS: METOPROLOL SUCC (TopROL XL) 50MG **XL** TAB PO SCH ×2 (09:16→20:11)
[2019-03-19] MEDS: DIGOXIN 0.125 MG TAB PO SCH (09:16)
[2019-03-19] MEDS: DOCUSATE SODIUM 100 MG CAP PO SCH ×2 (09:17→20:09)
--- NOTE | 2019-03-19 11:49 | IPNPDOC ---
Date Seen The patient was seen on 03/19/19. Progress Note SUBJECTIVE: Now on renally dosed bactrim without fever or chills for leg wound. cx: reviewed. Pt c/o worsening tremors after completing clindamycin, but no sob. pt c/o lips feeling swollen, but no signs of angioedema or stridor. clinda discontinued, and pt was given benadryl and prednisone. RN aware of current complaints. Bactrim given for leg cellulitis renally adjusted . Pt c/o fatigue and weakness. PT and ARU consulted to help improve her mobility. c/o thick brown sputum on 03/16/19 but none since. no cough,fever or chills toda y. on avelox for pneumonia and s/p clinda for Right leg cellulitis with ulcer being dressed daily. no c/o sob. pt has not passed HSE. still awaiting physical therapy clearance as she lives alone, and will also need home care referral. PHYSICAL EXAMINATION: VITAL SIGNS: pls see below GENERAL: She is awake, alert and oriented times three. She is not in acute distress. HEENT: Atraumatic. Pupils equal, round, and reactive to light. No jaundice. Extraocular muscles intact. Ears, nose and throat are normal. Mouth mucous moist. NECK: No jugular venous distention (JVD). No bruits. LUNGS: Clear and she has some left basilar crackles, but no wheezing. HEART: S1, S2, not tachycardic, no murmur, regular. ABDOMEN: Soft. Bowel sounds positive. Nontender. LOWER EXTREMITIES: Left leg is normal. There is erythema and swelling of the right lower extremity and also there is a small skin superficial wound on her right lower extremity close to her ankle area, but no evidence of abscess. SKIN: No rash. LABORATORY DATA, IMAGING STUDIES, MICROBIOLOGY: PLS SEE BELOW CT chest 03/15/19: Tubes, catheters and devices: Pacemaker in position. Lungs: There is pulmonary hyperinflation. Minimal diffuse bullous change with coarse interstitium and minimal fibro-atelectatic change extending into the lingula. There are minimal patchy infiltrates in the left lower lobe and minimal scattered bronchiectasis. There is minimal biapical scar. Pleural space: Minimal bilateral pleural effusions, left greater than right. Heart: Coronary artery calcifications are present. The left atrium measures 5.4 cm in its AP dimension. Aorta: Unremarkable. No aortic aneurysm. Lymph nodes: Unremarkable. No enlarged lymph nodes. Bones/joints: Wedge configuration T6-T8 which appear to be chronic. There is slight dextroscoliosis and mild kyphosis of the thoracic spine. Old fracture of the right 4th rib posterolaterally. Soft tissues: Unremarkable. IMPRESSION: 1. Pulmonary hyperinflation with minimal diffuse bullous change and coarse interstitium consistent with COPD. There is minimal fibro-atelectatic change extending into the lingula and there is minimal scattered bronchiectasis. 2. Minimal patchy infiltrates in the left lower lobe consistent with pneumonia. 3. Minimal bilateral pleural effusions, cardiomegaly and pacemaker in position and some degree of congestive failure is not excluded. Electronically signed by: Amelia Perez On 03/16/2019 00:28:58 AM DD: AMELIA PEREZ MD 03/15/19 2332 DT: CHENG 03/16/19 0028 DS: CARIE 03/16/19 0028 ASSESSMENT AND PLAN: The patient is an 88-year-old white female with several chronic medical conditions listed below who presented to the ER for evaluation of the above complaints. 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 For that she went to urgent care and she was told she had a viral upper respiratory infection (URI) and recommended treating symptomatically. She was not given any antibiotics. Gradually, her symptoms resolved. However, in the last 1-2 weeks she started having difficulty breathing when she moved around and had some cough without production of phlegm. Denies any fever or any chills. She also stated she had injury to her right lower extremity which is infected and decided to come to the ER for further evaluation.In the ER, she had a chest x-ray as well as chest CT done which demonstrated she has a left pleural effusion. Otherwise, her workup was not significant. The medicine was called for admission. Right lower extremity cellulitis/ right ulcer. admitted to the medical/surgical floor. s/p IV clindamycin for her right lower extremity pt convinced that clinda causes her tremors to worsen, therefore, discontinued 03/18/19 on bactrim renally dosed 03/18/19 wound cx: reviewed community acquired pneumonia: checked sputum cx, respiratory panel, urine legionella, urine strep ag avelox due to pcn allergy bacid and yogurt to prevent cdiff. Left pleural effusion. improved with lasix. sputum cx, respiratory panel ARSALAN s/p trial of lasix Bronchiectasis with difficulty expectorating acapella nebs sputum cx dysphagia to solids pt refused esophagram for now checked bedside swallow eval checked ARASLAN History of high blood pressure. resume home meds History of atrial fibrillation which is rate controlled. resume home meds VS, I&O, 24H, Fishbone Vital Signs/I&O Vital Signs Date Time Temp Pulse Resp B/P (MAP) Pulse Ox O2 Delivery O2 Flow Rate FiO2 03/19/19 09:16 142/48 03/19/19 09:16 64 03/19/19 05:45 98.4 14 94 03/16/19 14:00 2.0 03/16/19 01:15 Room Air I&O- Last 24 Hours up to 6 AM 03/19/19 05:59 Intake Total 430 ml Output Total 150 ml Balance 280 ml Laboratory Data Microbiology Microbiology 03/15/19 Blood Culture - Preliminary, Resulted No Growth after 72 hours. All specime... 03/16/19 Respiratory Virus Panel (PCR) ([facility]) - Final, Complete 03/15/19 Gram Stain - Final, Resulted 03/15/19 Wound Culture - Preliminary, Resulted Staphylococcus Pseudintermediu ALEX YOUNG MD Mar 19, 2019 11:49
[2019-03-19 12:28] LABS: BASO % 0.4 % (0.0-1.0); EOS % 0.4 % (0.0-3.0); HEMATOCRIT 36.1 % (36.0-47.0); HEMOGLOBIN 11.8 g/dl (12.0-15.5); LYMPH # 0.6 10^3/uL (1.5-4.5); LYMPH % 8.9 % (24.0-44.0); MEAN CORPUSCULAR HEMOGLOBIN 29.9 pg (27.0-33.0); MEAN CORPUSCULAR HGB CONC 32.7 g/dl (32.0-36.5); MEAN CORPUSCULAR VOLUME 91.4 fl (80.0-96.0); MONO # 0.8 10^3/uL (0.0-0.8); MONO % 11.7 % (0.0-5.0); NEUTROPHILS # 5.5 10^3/uL (1.8-7.7); NEUTROPHILS % 78.2 % (36.0-66.0); PLATELET COUNT, AUTOMATED 229 10^3/uL (150-450); RED BLOOD COUNT 3.95 10^6/uL (4.00-5.40)
[2019-03-19 12:51] LABS: C REACTIVE PROTEIN QUANTITATIV 0.3 MG/DL (0.00-0.30); CALCIUM LEVEL 8.4 MG/DL (8.8-10.2); CREATININE FOR GFR 1.52 MG/DL (0.55-1.30); GLOMERULAR FILTRATION RATE 34.3 (>32); POTASSIUM SERUM 4.4 MEQ/L (3.5-5.1)
[2019-03-19 13:40] LABS: ERYTHROCYTE SEDIMENTATION RATE 16 mm/hr (0-42)
[2019-03-19 14:00] VITALS: BP 124/81
[2019-03-19] MEDS: RIVAROXABAN 20 MG TAB (XARELTO) PO SCH (17:27)
[2019-03-19] MEDS: ATORVASTATIN 20 MG TAB PO SCH (20:09)
[2019-03-19] MEDS: amLODIPine 10 MG TAB PO SCH (20:11)
[2019-03-19 22:00] VITALS: BP 137/49
[2019-03-20 00:06] LABS: BODY FLUID CULTURE Not Indicated (.); LEGIONELLA ANTIGEN URINE Negative (Negative); ORGANISM ID Not indicated. (.); SPECIMEN SOURCE Urine (.); URINE STREP PNEUMONIAE ANTIGEN Negative (Negative)
[2019-03-20] MEDS: MOXIFLOXACIN 400 MG TAB PO SCH (05:34)
[2019-03-20 06:00] VITALS: BP 142/42
[2019-03-20] MEDS: METOPROLOL SUCC (TopROL XL) 50MG **XL** TAB PO SCH (08:56)
[2019-03-20] MEDS: BACTRIM 160MG/800MG DS TAB PO SCH (08:56)
[2019-03-20] MEDS: DIGOXIN 0.125 MG TAB PO SCH (08:56)
[2019-03-20 08:57] VITALS: BP 142/42
[2019-03-20] MEDS: DOCUSATE SODIUM 100 MG CAP PO SCH (08:57)
[2019-03-20] MEDS: FOSINOPRIL 20 MG TAB PO SCH (08:57)
[2019-03-20] MEDS ORDERED: LEVA12INH INH (13:04)
[2019-03-20] MEDS ORDERED: MOXI400T11 PO (13:04)
[2019-03-20] MEDS ORDERED: SULF1TAB93 PO (13:04)
--- NOTE | 2019-03-20 13:55 | NUR ---
Recommend upgrade to regular solids, continue thin liquids Addendum: 03/20/[address] [facility] Amended: Links added.
--- NOTE | 2019-03-20 19:53 | DS.PDOC ---
Discharge Summary General Date of Admission Mar 16, 2019 at 00:31 Date of Discharge 03/20/2019 Discharge Summary The patient is an 88-year-old white female with several chronic medical conditions listed below who presented to the ER for evaluation of the above complaints. 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 For that she went to urgent care and she was told she had a viral upper respiratory infection (URI) and recommended treating symptomatically. She was not given any antibiotics. Gradually, her symptoms resolved. However, in the last 1-2 weeks she started having difficulty breathing when she moved around and had some cough without production of phlegm. Denies any fever or any chills. She also stated she had injury to her right lower extremity which is infected and decided to come to the ER for further evaluation.In the ER, she had a chest x-ray as well as chest CT done which demonstrated she has a left pleural effusion. Otherwise, her workup was not significant. The medicine was called for admission. For right lower extremity cellulitis/ right ulcer, s/p IV clindamycin for her right lower extremity. Clindamycin caused her tremors to worsen, therefore, discontinued 03/18/19. Instead, bactrim renally dosed 03/18/19. Will continue to finish 7 day course. For community acquired pneumonia, the patient was continued on moxifloxacin. The patient has improved, and she is on RA. For a history of high blood pressure, resume home meds For a history of atrial fibrillation which is rate controlled. Resume home meds. The patient is medically stable to be discharged to ARU. She will continue and finish 7 day course of bactrim and moxifloxacin for cellultis and community acquired pneumonia. After she is discharged from rehab, she will need to follow her PCP within 1 week. Vital Signs/I&Os Vital Signs Date Time Temp Pulse Resp B/P (MAP) Pulse Ox O2 Delivery O2 Flow Rate FiO2 03/20/19 08:57 142/42 03/20/19 08:56 65 03/20/19 06:00 97.9 17 96 03/16/19 14:00 2.0 03/16/19 01:15 Room Air I&O- Last 24 Hours up to AM 03/20/19 06:00 Intake Total 990 ml Output Total 75 ml Balance 915 ml Microbiology Microbiology 03/15/19 Blood Culture - Preliminary, Resulted No Growth after 72 hours. All specime... 03/16/19 Respiratory Virus Panel (PCR) ([facility]UELANGEL) - Final, Complete 03/15/19 Gram Stain - Final, Complete 03/15/19 Wound Culture - Final, Complete Staphylococcus Pseudintermediu Pasturella Canis Discharge Medications Scheduled Amlodipine Besylate (Amlodipine Besylate) 10 Mg Tablet, 10 MG PO QHS, (Reported) Atorvastatin Calcium (Atorvastatin Calcium) 20 Mg Tablet, 20 MG PO QPM, (Reported) DINNERTIME Digoxin (Digoxin) 125 Mcg Tablet, 125 MCG PO DAILY, (Reported) Fosinopril Sodium (Fosinopril Sodium) 20 Mg Tablet, 20 MG PO BID, (Reported) Metoprolol Succinate (Metoprolol Succinate) 50 Mg Tab.er.24h, 50 MG PO BID, (Reported) Moxifloxacin HCl (Moxifloxacin HCl) 400 Mg Tablet, 400 MG PO DAILY@06 Rivaroxaban (Xarelto) 20 Mg Tablet, 20 MG PO QPM, (Reported) DINNERTIME Sulfamethoxazole/Trimethoprim (Sulfamethoxazole-Tmp Ds Tablet) 1 Each Tablet, 1 TAB PO DAILY Torsemide (Torsemide) 20 Mg Tablet, 20 MG PO DAILY, (Reported) Scheduled PRN Acetaminophen (Tylenol Extra Strength) 500 Mg Tablet, 500 MG PO Q4H PRN for PAIN / FEVER, (Reported) Levalbuterol Hydrochloride (Xopenex Concentrate) 1.25 Mg/0.5 Ml Vial.neb, 1.25 MG INH Q1HP PRN for SHORTNESS OF BREATH Allergies Coded Allergies: benzonatate (Verified Allergy, Severe, THROAT CLOSING, 03/15/19) Penicillins (Verified Allergy, Mild, RASH, 03/15/19) bee venom protein (honey bee) (Verified Allergy, Mild, RASH, 03/15/19) insect venom (Verified Allergy, Mild, RASH, 03/16/19) iodine (Verified Allergy, Mild, RASH, 03/15/19) povidone (Verified Allergy, Mild, RASH, 03/15/19) procaine (Verified Allergy, Unknown, 03/15/19) codeine (Verified Adverse Reaction, Mild, CLIMBS THE WALL , 03/15/19) turkey (Verified Adverse Reaction, Mild, NAUSEA, 03/15/19) TRANG DENT MD Mar 20, 2019 19:53
== END 2019-03-20 13:45 | DRG 602 ==
LOC: M ED 21:56 → M ED INP 03-16 00:31 → M MS5PR 03-16 01:25
PROVIDERS: ADMIT Hospitalist; ATTEND Internal Medicine
DX: L03.116 Cellulitis of left lower limb (principal); J18.9 Pneumonia, unspecified organism; J90 Pleural effusion, not elsewhere classified; L97.919 Non-pressure chronic ulcer of unspecified part of right lower leg with unspecified severity; I10 Essential (primary) hypertension; I48.2 Chronic atrial fibrillation; Z95.0 Presence of cardiac pacemaker; Z88.0 Allergy status to penicillin; J47.9 Bronchiectasis, uncomplicated; R13.10 Dysphagia, unspecified; Z79.01 Long term (current) use of anticoagulants; Z79.899 Other long term (current) drug therapy; Z88.8 Allergy status to other drugs, medicaments and biological substances; Z91.018 Allergy to other foods; Z91.030 Bee allergy status; Z88.5 Allergy status to narcotic agent

== ENCOUNTER 2019-03-20 12:06 | Inpatient (IN) | payer MEDICARE ==
[~2019-03-20] VITALS: Ht 154.9 cm; Wt 45.5 kg
[~2019-03-20 12:06] MED LIST changes: +ACET-683 PO; +ACET-897 PO; +AMLO10TA5 PO; +ATOR1TAB21 PO; +DIGO0.12 PO; +FOSI20TA79 GT; +FOSI20TA79 PO; +LIPI20TA PO; +METO1TAB7 PO; +TORS10TA3 PO; +TORS20TA2 PO
[2019-03-20] MEDS ORDERED: MOXI400T11 PO (13:04)
[2019-03-20] MEDS ORDERED: SULF1TAB93 PO (13:04)
[2019-03-20] MEDS ORDERED: LEVA12INH INH (13:04)
[2019-03-20 14:00] VITALS: BP 138/51
[2019-03-20] MEDS ORDERED: LEVALBUTEROL 1.25 MG/0.5 ML CONCENTRATE NEB INH PRN (15:45)
[2019-03-20] MEDS: RIVAROXABAN 20 MG TAB (XARELTO) PO SCH (17:54)
[2019-03-20 20:00] VITALS: BP 137/65
[2019-03-20] MEDS: METOPROLOL SUCC (TopROL XL) 50MG **XL** TAB PO SCH (20:26)
[2019-03-20] MEDS: FOSINOPRIL 20 MG TAB PO SCH (20:27)
[2019-03-20] MEDS: ATORVASTATIN 20 MG TAB PO SCH (20:27)
[2019-03-20] MEDS: amLODIPine 10 MG TAB PO SCH (20:27)
[2019-03-20] MEDS: DOCUSATE SODIUM 100 MG CAP PO SCH (20:27)
[2019-03-21 06:00] VITALS: BP 130/57
[2019-03-21] MEDS ORDERED: MOXIFLOXACIN 400 MG TAB PO SCH (06:00)
[2019-03-21 07:20] LABS: BASO % 0.6 % (0.0-1.0); EOS # 0.1 10^3/uL (0.0-0.50); EOS % 1.9 % (0.0-3.0); HEMATOCRIT 32.2 % (36.0-47.0); HEMOGLOBIN 10.4 g/dl (12.0-15.5); LYMPH # 0.7 10^3/uL (1.5-4.5); LYMPH % 12.6 % (24.0-44.0); MEAN CORPUSCULAR HEMOGLOBIN 29.6 pg (27.0-33.0); MEAN CORPUSCULAR HGB CONC 32.3 g/dl (32.0-36.5); MEAN CORPUSCULAR VOLUME 91.7 fl (80.0-96.0); MONO # 0.9 10^3/uL (0.0-0.8); MONO % 16.1 % (0.0-5.0); NEUTROPHILS # 3.7 10^3/uL (1.8-7.7); NEUTROPHILS % 68.4 % (36.0-66.0); PLATELET COUNT, AUTOMATED 182 10^3/uL (150-450); RED BLOOD COUNT 3.51 10^6/uL (4.00-5.40); WHITE BLOOD COUNT 5.3 10^3/uL (4.0-10.0)
[2019-03-21 07:44] LABS: BILIRUBIN,TOTAL 0.4 MG/DL (0.2-1.0); CREATININE FOR GFR 1.49 MG/DL (0.55-1.30); GLOMERULAR FILTRATION RATE 35.1 (>32); POTASSIUM SERUM 4.7 MEQ/L (3.5-5.1); TOTAL PROTEIN 6.2 GM/DL (6.4-8.2)
[2019-03-21] MEDS: FOSINOPRIL 20 MG TAB PO SCH ×2 (08:51→21:41)
[2019-03-21] MEDS: BACTRIM 160MG/800MG DS TAB PO SCH (08:51)
[2019-03-21] MEDS: TORSEMIDE 20 MG TAB PO SCH (08:52)
[2019-03-21] MEDS: METOPROLOL SUCC (TopROL XL) 50MG **XL** TAB PO SCH ×2 (08:52→21:00)
[2019-03-21] MEDS: DIGOXIN 0.125 MG TAB PO SCH (08:53)
[2019-03-21] MEDS: DOCUSATE SODIUM 100 MG CAP PO SCH ×2 (08:53→21:00)
--- NOTE | 2019-03-21 13:33 | HPEPDOC ---
Obstetrics Gynecology Md Note DATE OF ADMISSION: Mar 20, 2019 at 13:50 SOURCE OF ADMISSION INFORMATION: patient and [facility] records CHIEF COMPLAINT: RLE cellulitis HISTORY OF PRESENT ILLNESS: 88F pmh HTN and Afib on XArelto with pacemaker who had a recent URI without antibiotics treatments who fell at home and developed a right LE ulcer and presented to [facility] ED on 03/16/19 with difficulty walking, non-productive cough, and dyspnea on exertion. CXR showed, New pleural angle blunting on the left. Pacemaker and mild cardiomegaly and CT Chest showed, Pulmonary hyperinflation with minimal diffuse bullous change and coarse interstitium consistent with COPD. There is minimal fibro-atelectatic change extending into the lingula and there is minimal scattered bronchiectasisMinimal patchy infiltrates in the left lower lobe consistent with pneumonia Minimal bilateral pleural effusions, cardiomegaly and pacemaker in position and some degree of congestive failure is not excluded. She was started on IV Clindamycin her RLE cellulitis then switched to renally dosed Bactrim as she was concerned it made her tremors worse which she reports having developed LUE tremor within the past year. She was started on Avelox for suspected community acquired pneumonia, evaluated by therapy and found to have deficits in gait and ADLs, also reporting a recent episode of dysphagia with solids and deemed medically appropriate for discharge to ARU. REVIEW OF SYSTEMS: The following is a completed review of systems and has been reviewed. Review of systems otherwise unremarkable. PAIN: Patient self reports no pain EYES: Negative for recent vision loss EARS, NOSE, & THROAT: +intermittent dysphagia to solids CARDIOVASCULAR: denies chest pain or palpitations PULMONARY: Negative. Denies shortness of breath, +non-productive cough GASTROINTESTINAL: Negative for diarrhea/constipation GENITOURINARY:no dysuria MUSCULOSKELETAL: RLE weakness NEUROLOGICAL: L>R upper extremity tremor SKIN: Right calf ulcer with swelling PSYCHIATRIC: Unremarkable All other review of systems found to be negative. PAST MEDICAL HISTORY: as per HPI PAST SURGICAL HISTORY: PM insertion, breast cyst removal, left ankle fracture ALLERGIES: Please see below. MEDICATIONS: Please see below. SOCIAL HISTORY: Lives alone, denies smoking, ETOH or illicit drugs DIET: low sodium PHYSICAL EXAMINATION: VITAL SIGNS: Please see below. GENERAL: Pleasant and cooperative. No acute distress. thin HEENT: PERRL. Extraocular movements intact. Clear conjunctiva CARDIOVASCULAR: Irregular rate and rhythm. No murmurs, rubs, or gallops LUNGS: Clear to auscultation bilaterally. No wheezes. +rhonchi ABDOMEN: Soft, nontender, nondistended. Positive bowel sounds. Normal active bowel sounds NEUROLOGICAL: Alert and oriented times three. Cranial nerves II through XII grossly intact. Sensation grossly intact LUE resting and essential tremor with mild cogwheel rigidity, RUE essential tremor EXTREMITIES: 5\5 strength bilateral upper extremities 5\5 strength right lower extremity. 5/5 strength in left lower extremity. SKIN: right calf with mild swelling, no erythema, no warmth- ulcer healing IMAGING: Imaging documentation personally reviewed by record FUNCTIONAL STATUS: Premorbid: Independent with all activities of daily life as well as mobility On Admission: Contact guard for functional transfers and ambulation with RW, Standby assist for dressing and toileting GOALS: Mod-I with Rw for community distances on varying terrain, able to climb 11-12 stairs to do laundry Mod-I, Mod-I bathing, toileting, dressing, medical optimization, assess for DMEs, home eval. ASSESSMENT:88-year-old with past medical history of Afib who presents status post recent URI with fall and RLE cellulitis PLAN: 1. Rehab: PT/OT, ADMINISTRATIVE SERVICES OFFICER- goal to safely advance diet per speech recs, strengthen RLE and core, improve on balance, monitor for parkinsonian features in gait given history of LUE tremors and dysphagia, improve overall endurance 2. Neuro: bilateral tremors likely due to Avelox, will monitor, LUE tremor chronic in nature with dysphagia will monitor for parkinsonian features 3. CArdio: Pmh Afib on Xarelto, c/u digoxin and Metoprolol -CHF- c/u Torsemide -HTN c/u Norvas and Monopril- medicine consulted to assist in management 4. resp: recent CAP, c/u Avelox for now, incentive spirometry, Duonebs, guaifenasin 5. ID: RLE cellulitis, c/u renally doses Bactrim 6. : monitor PVRs 7. DVT ppx: on xarelto 8. Skin: optifoam to right calf ulcer 9. GI ppx: Protonix 10. Dispo: TBD POST ADMISSION PHYSICIAN EVALUATION: Medical and functional status: Description of medical status, medical assessment: As above. Rehabilitation diagnosis and current and prior cold morbid medical conditions as above. Risk of complications and plans to mitigate them as above. Description of functional status current status is as above. Prior status as above. Status compared to preadmission: There are no clinically significant differences between the patient's current status and the information described on the preadmission screening document. Treatment plan anticipated: Treatment plan is as described above. Required disciplines including physical therapy, occupational therapy, others as noted above Intensity of services: 3 hours a day, 6 days a week. Special considerations: There are no specific special or safety considerations that would likely preclude immediate implementation of an intensive rehabilitation program or subsequently influence the plan of care. ATTESTATION: Considering all the information above, it is my best judgment that this patient requires intensive rehabilitation therapy as described above and an inpatient hospital environment due to the complexity of nursing, medical, and rehabilitation needs required by the patient. Furthermore, this patient can reasonably be expected to participate in an benefit from an inpatient rehabilitation stay with an interdisciplinary team approach to the delivery of rehabilitation care under the direction and supervision of rehabilitation physician. PROGNOSIS: Excellent ESTIMATED LENGTH OF STAY:12-14 days. PROJECTED DISCHARGE DESTINATION: Home with family support and any durable medical equipment required to increase functional safety and mobility TIME SPENT COUNSELING AND COORDINATING INITIAL CARE: Greater than 70 minutes. Vital Signs Vital Sign - Last 24 Hours 03/20/19 03/20/19 03/20/19 03/21/19 14:00 20:00 20:26 06:00 Temp 98.4 97.5 98.5 Pulse 51 51 51 66 Resp 18 17 18 B/P (MAP) 138/51 (80) 137/65 (89) 137/65 130/57 (81) Pulse Ox 95 95 92 03/21/19 03/21/19 03/21/19 08:51 08:52 08:53 Pulse 66 66 B/P (MAP) 130/57 130/57 Laboratory Data CBC/BMP Laboratory Tests 03/21/19 06:55 Red Blood Count 3.51 L, Mean Corpuscular Volume 91.7, Mean Corpuscular Hemoglobin 29.6, Mean Corpuscular Hemoglobin Concent 32.3, Red Cell Distribution Width 14.0, Neutrophils (%) (Auto) 68.4 H, Lymphocytes (%) (Auto) 12.6 L, Monocytes (%) (Auto) 16.1 H, Eosinophils (%) (Auto) 1.9, Basophils (%) (Auto) 0 .6, Neutrophils # (Auto) 3.7, Lymphocytes # (Auto) 0.7 L, Monocytes # (Auto) 0.9 H, Eosinophils # (Auto) 0.1, Basophils # (Auto) 0.0, Calcium Level 8.0 L, Aspartate Amino Transf (AST/SGOT) 15, Alanine Aminotransferase (ALT/SGPT) 23, Alkaline Phosphatase 93, Total Bilirubin 0.4, Total Protein 6.2 L, Albumin 3.0 L Labs 24H Laboratory Tests 2 03/21/19 06:55: Immature Granulocyte % (Auto) 0.4, White Blood Count 5.3, Red Blood Count 3.51L, Hemoglobin 10.4L, Hematocrit 32.2L, Mean Corpuscular Volume 91.7, Mean Corpuscular Hemoglobin 29.6, Mean Corpuscular Hemoglobin Concent 32.3, Red Cell Distribution Width 14.0, Platelet Count 182, Neutrophils (%) (Auto) 68.4H, Lymphocytes (%) (Auto) 12.6L, Monocytes (%) (Auto) 16.1H, Eosinophils (%) (Auto) 1.9, Basophils (%) (Auto) 0.6, Neutrophils # (Auto) 3.7, Lymphocytes # (Auto) 0.7L, Monocytes # (Auto) 0.9H, Eosinophils # (Auto) 0.1, Basophils # (Auto) 0.0, Nucleated Red Blood Cells % (auto) 0.0, Anion Gap 4L, Glomerular Filtration Rate 35.1, Blood Urea Nitrogen 35H, Creatinine 1.49H, Sodium Level 139, Potassium Level 4.7, Chloride Level 107, Carbon Dioxide Level 28, Calcium Level 8.0L, Aspartate Amino Transf (AST/SGOT) 15, Alanine Aminotransferase (ALT/SGPT) 23, Alkaline Phosphatase 93, Total Bilirubin 0.4, Total Protein 6.2L, Albumin 3.0L, Albumin/Globulin Ratio 0.94L Home Medications Scheduled Amlodipine Besylate (Amlodipine Besylate) 10 Mg Tablet, 10 MG PO QHS, (Reported) Atorvastatin Calcium (Atorvastatin Calcium) 20 Mg Tablet, 20 MG PO QPM, (Reported) DINNERTIME Digoxin (Digoxin) 125 Mcg Tablet, 125 MCG PO DAILY, (Reported) Fosinopril Sodium (Fosinopril Sodium) 20 Mg Tablet, 20 MG PO BID, (Reported) Metoprolol Succinate (Metoprolol Succinate) 50 Mg Tab.er.24h, 50 MG PO BID, (Reported) Moxifloxacin HCl (Moxifloxacin HCl) 400 Mg Tablet, 400 MG PO DAILY@06 Rivaroxaban (Xarelto) 20 Mg Tablet, 20 MG PO QPM, (Reported) DINNERTIME Sulfamethoxazole/Trimethoprim (Sulfamethoxazole-Tmp Ds Tablet) 1 Each Tablet, 1 TAB PO DAILY Torsemide (Torsemide) 20 Mg Tablet, 20 MG PO DAILY, (Reported) Scheduled PRN Acetaminophen (Tylenol Extra Strength) 500 Mg Tablet, 500 MG PO Q4H PRN for PAIN / FEVER, (Reported) Levalbuterol Hydrochloride (Xopenex Concentrate) 1.25 Mg/0.5 Ml Vial.neb, 1.25 MG INH Q1HP PRN for SHORTNESS OF BREATH Allergies Coded Allergies: benzonatate (Verified Allergy, Severe, THROAT CLOSING, 03/15/19) Penicillins (Verified Allergy, Mild, RASH, 03/15/19) bee venom protein (honey bee) (Verified Allergy, Mild, RASH, 03/15/19) insect venom (Verified Allergy, Mild, RASH, 03/16/19) iodine (Verified Allergy, Mild, RASH, 03/15/19) povidone (Verified Allergy, Mild, RASH, 03/15/19) procaine (Verified Allergy, Unknown, 03/15/19) codeine (Verified Adverse Reaction, Mild, CLIMBS THE WALL , 03/15/19) turkey (Verified Adverse Reaction, Mild, NAUSEA, 03/15/19) A-FIB/CHADSVASC A-FIB History Current/History of A-Fib/PAF?: Yes Current PO Anticoag Therapy: Yes BONY FORD MD Mar 21, 2019 13:33
--- NOTE | 2019-03-21 13:35 | CR ---
DATE OF CONSULTATION: 03/21/2019 Iliana was recently in the hospital for cellulitis of her right lower leg. She had increased tremors on clindamycin. She is now on a regimen that will be summarized below that includes moxifloxacin to which she appears to be having another side effect, which demonstrates this tremor. She has a history of hypertensive heart disease, atrial fibrillation, hyperlipidemia. Surgical history includes pacemaker insertion, breast cyst removal which was benign, left ankle surgery. Social history and family history is unchanged. Her medication list was reviewed. Her allergy list is extensive. She only medication with a significant allergy is PENICILLIN and TESSALON, but she does have an extensive list of other medications as well. PHYSICAL EXAMINATION: Vital signs per flow sheet. Blood pressure is 142/42. General appearance: Elderly, frail, resting comfortably. She is quite tremulous in a generalized fashion, but she is fully alert and conversant. Pupils equal and reactive to light. Tympanic membranes and oropharynx benign. Neck no masses. Lungs clear. Heart irregular rate and rhythm, 1/6 systolic ejection murmur. Abdomen soft, nontender, no masses. No peripheral edema. Neurologic exam: She is alert, oriented and conversant. Cranial nerves II through XII are intact. Strength is normal in the arms and legs. She is very tremulous with a course tremor of arms, legs and head/neck. She moves arms and legs with equal strength. LABS: CBC stable from previous. Creatinine is up to 1.49, her baseline is around 1. IMPRESSION: 1. Tremor. Appears to be an acute reaction to Avelox, onset was soon after taking this medication. Quinolones can cause neuropsychiatric side effects and I have tremor occur with this medication in the past. I reviewed her treatment for cellulitis, which is essentially resolved and think the Avelox can safely be discontinued. Would consider discontinuing the Bactrim soon as well. 2. Atrial fibrillation. Rate is controlled. She is anticoagulated with Xarelto. 3. Hypertensive heart disease. Blood pressure is under good control. 4. Hyperlipidemia. Continue her atorvastatin.
[2019-03-21 14:00] VITALS: BP 138/61
[2019-03-21] MEDS: IPRATROPIUM 0.5MG/ALBUTEROL 2.5MG INH SOL UD 3ML (DUONEB)(J7620) NEB SCH ×2 (14:00→20:03)
[2019-03-21] MEDS: guaiFENesin 200 MG TAB PO SCH ×2 (16:00→21:42)
[2019-03-21] MEDS: RIVAROXABAN 20 MG TAB (XARELTO) PO SCH (17:44)
[2019-03-21 20:00] VITALS: BP 160/75
[2019-03-21] MEDS: ATORVASTATIN 20 MG TAB PO SCH (21:42)
[2019-03-21] MEDS: ACETAMINOPHEN 325 MG TAB PO SCH (21:42)
[2019-03-21] MEDS: amLODIPine 10 MG TAB PO SCH (21:43)
[2019-03-22 05:37] VITALS: BP 144/63
[2019-03-22] MEDS: IPRATROPIUM 0.5MG/ALBUTEROL 2.5MG INH SOL UD 3ML (DUONEB)(J7620) NEB SCH (07:42)
[2019-03-22 07:44] LABS: HEMATOCRIT 32.2 % (36.0-47.0); HEMOGLOBIN 10.5 g/dl (12.0-15.5); MEAN CORPUSCULAR HEMOGLOBIN 29.3 pg (27.0-33.0); MEAN CORPUSCULAR HGB CONC 32.6 g/dl (32.0-36.5); MEAN CORPUSCULAR VOLUME 89.9 fl (80.0-96.0); PLATELET COUNT, AUTOMATED 178 10^3/uL (150-450); RED BLOOD COUNT 3.58 10^6/uL (4.00-5.40); WHITE BLOOD COUNT 4.1 10^3/uL (4.0-10.0)
[2019-03-22 08:04] LABS: CALCIUM LEVEL 8.2 MG/DL (8.8-10.2); CREATININE FOR GFR 1.56 MG/DL (0.55-1.30); GLOMERULAR FILTRATION RATE 33.3 (>32)
[2019-03-22] MEDS: TORSEMIDE 20 MG TAB PO SCH (08:04)
[2019-03-22] MEDS: BACTRIM 160MG/800MG DS TAB PO SCH (08:04)
[2019-03-22] MEDS: guaiFENesin 200 MG TAB PO SCH ×3 (08:04→21:00)
[2019-03-22] MEDS: DIGOXIN 0.125 MG TAB PO SCH (08:05)
[2019-03-22] MEDS: FOSINOPRIL 20 MG TAB PO SCH ×2 (08:05→21:20)
[2019-03-22] MEDS: METOPROLOL SUCC (TopROL XL) 50MG **XL** TAB PO SCH ×2 (08:06→21:00)
[2019-03-22] MEDS: DOCUSATE SODIUM 100 MG CAP PO SCH ×3 (08:06→21:00)
--- NOTE | 2019-03-22 11:31 | IPNPDOC ---
PM&R Progress Note DATE OF SERVICE: Mar 21, 2019 Informatica Architect Progress Note Subjective: Patient concerned about her worsening tremors while on Avelox and would like to stop. She denies fevers, chills, and still has a mild non-productive cough. REVIEW OF SYSTEMS: The following is a completed review of systems and has been reviewed. Review of systems otherwise unremarkable. PAIN: Patient self reports no pain EYES: Negative for recent vision loss EARS, NOSE, & THROAT: +intermittent dysphagia to solids CARDIOVASCULAR: denies chest pain or palpitations PULMONARY: Negative. Denies shortness of breath, +non-productive cough GASTROINTESTINAL: Negative for diarrhea/constipation GENITOURINARY:no dysuria MUSCULOSKELETAL: RLE weakness NEUROLOGICAL: L>R upper extremity tremor SKIN: Right calf ulcer with swelling PSYCHIATRIC: Unremarkable All other review of systems found to be negative. PHYSICAL EXAMINATION: VITAL SIGNS: Please see below. GENERAL: Pleasant and cooperative. No acute distress. thin HEENT: PERRL. Extraocular movements intact. Clear conjunctiva CARDIOVASCULAR: Irregular rate and rhythm. No murmurs, rubs, or gallops LUNGS: Clear to auscultation bilaterally. No wheezes. +rhonchi ABDOMEN: Soft, nontender, nondistended. Positive bowel sounds. Normal active bowel sounds NEUROLOGICAL: Alert and oriented times three. Cranial nerves II through XII grossly intact. Sensation grossly intact LUE resting and essential tremor with mild cogwheel rigidity, RUE essential tremor EXTREMITIES: 5\5 strength bilateral upper extremities 5\5 strength right lower extremity. 5/5 strength in left lower extremity. SKIN: right calf with mild swelling, no erythema, no warmth- ulcer healing ASSESSMENT:88-year-old with past medical history of Afib who presents status post recent URI with fall and RLE cellulitis PLAN: 1. Rehab: PT/OT, LINUX CONSULTANT- goal to safely advance diet per speech recs, strengthen RLE and core, improve on balance, monitor for parkinsonian features in gait given history of LUE tremors and dysphagia, improve overall endurance 2. Neuro: bilateral tremors likely due to Avelox, will monitor, LUE tremor chronic in nature with dysphagia will monitor for parkinsonian features 3. CArdio: Pmh Afib on Xarelto, c/u digoxin and Metoprolol -CHF- c/u Torsemide -HTN c/u Norvas and Monopril- medicine consulted to assist in management 4. resp: recent CAP, will d/c Avelox due to worsening tremors, c/u incentive spirometry, Duonebs, guaifenasin 5. ID: RLE cellulitis, c/u renally doses Bactrim 6. : monitor PVRs 7. DVT ppx: on xarelto 8. Skin: optifoam to right calf ulcer 9. GI ppx: Protonix 10. Dispo: TBD Allergies Coded Allergies: benzonatate (Verified Allergy, Severe, THROAT CLOSING, 03/15/19) Penicillins (Verified Allergy, Mild, RASH, 03/15/19) bee venom protein (honey bee) (Verified Allergy, Mild, RASH, 03/15/19) insect venom (Verified Allergy, Mild, RASH, 03/16/19) iodine (Verified Allergy, Mild, RASH, 03/15/19) povidone (Verified Allergy, Mild, RASH, 03/15/19) procaine (Verified Allergy, Unknown, 03/15/19) codeine (Verified Adverse Reaction, Mild, CLIMBS THE WALL , 03/15/19) turkey (Verified Adverse Reaction, Mild, NAUSEA, 03/15/19) Vital Signs Vital Signs Date Time Temp Pulse Resp B/P (MAP) Pulse Ox O2 Delivery O2 Flow Rate FiO2 03/22/19 08:06 74 144/63 03/22/19 05:37 98.1 18 95 Laboratory Data CBC/BMP Laboratory Tests 03/22/19 07:19 Red Blood Count 3.58 L, Mean Corpuscular Volume 89.9, Mean Corpuscular Hemoglobin 29.3, Mean Corpuscular Hemoglobin Concent 32.6, Red Cell Distribution Width 14.0, Calcium Level 8.2 L Labs 24H Laboratory Tests 2 03/22/19 07:19: Nucleated Red Blood Cells % (auto) 0.0, Anion Gap 6L, Glomerular Filtration Rate 33.3, Blood Urea Nitrogen 26H, Creatinine 1.56H, Sodium Level 140, Potassium Level 5.0, Chloride Level 107, Carbon Dioxide Level 27, Calcium Level 8.2L Current Medications Current Medications Current Medications Acetaminophen (Tylenol Tab) 975 mg QHS PO Last administered on 03/21/19at 21:42; Start 03/21/19 at 21:00 Albuterol/ Ipratropium (Duoneb (Ipr 0.5mg/Alb 2.5mg)) 3 ml RTID NEB Last administered on 03/22/19 07:42; Start 03/21/19 at 14:00 Amlodipine Besylate (Norvasc) 10 mg QHS PO Last administered on 03/21/19 21:43; Start 03/20/19 at 21:00 Atorvastatin Calcium (Lipitor) 20 mg QHS PO Last administered on 03/21/19 21:42; Start 03/20/19 at 21:00 Digoxin (Lanoxin) 0.125 mg DAILY PO Last administered on 03/22/19 08:05; Start 03/21/19 at 09:00 Docusate Sodium (Colace) 100 mg BID PO Last administered on 03/20/19 20:27; Start 03/20/19 at 21:00 Fosinopril Sodium (Monopril) 20 mg BID PO Last administered on 03/22/19 08:05; Start 03/20/19 at 21:00 Guaifenesin (Robitussin Tab) 400 mg TID PO Last administered on 03/22/19 08:04; Start 03/21/19 at 16:00 Levalbuterol HCl (Xopenex Neb) 1.25 mg Q1HP PRN INH SHORTNESS OF BREATH; Start 03/20/19 at 15:45 Metoprolol Succinate (TopROL XL) 50 mg BID PO Last administered on 03/22/19 08:06; Start 03/20/19 at 21:00 Moxifloxacin HCl (Avelox) 400 mg DAILY@06 PO Last administered on 03/21/19 05:18; Start 03/21/19 at 06:00; Stop 03/21/19 at 11:15; Status DC Rivaroxaban (Xarelto) 20 mg DAILY@1800 PO Last administered on 03/21/19 17:44; Start 03/20/19 at 18:00 Torsemide (Demadex) 20 mg QAM PO Last administered on 03/22/19 08:04; Start 03/21/19 at 09:00 Trimethoprim/ Sulfamethoxazole (Bactrim Ds, Septra Ds 160mg/ 800mg) 1 tab DAILY PO Last administered on 03/22/19 08:04; Start 03/21/19 at 09:00; Stop 03/24/19 at 09:01 BONY FORD MD Mar 22, 2019 11:30
--- NOTE | 2019-03-22 11:31 | IPNPDOC ---
PM&R Progress Note DATE OF SERVICE: Mar 22, 2019 Engineering Writer Progress Note Subjective: Patient reporting her tremors are worse after Duonebs and would like to discontinue this medication. denies fevers or chills and cough improving. REVIEW OF SYSTEMS: The following is a completed review of systems and has been reviewed. Review of systems otherwise unremarkable. PAIN: Patient self reports no pain EYES: Negative for recent vision loss EARS, NOSE, & THROAT: +intermittent dysphagia to solids CARDIOVASCULAR: denies chest pain or palpitations PULMONARY: Negative. Denies shortness of breath, improving cough GASTROINTESTINAL: Negative for diarrhea/constipation GENITOURINARY:no dysuria MUSCULOSKELETAL: RLE weakness NEUROLOGICAL: L>R upper extremity tremor SKIN: Right calf ulcer with swelling PSYCHIATRIC: Unremarkable All other review of systems found to be negative. PHYSICAL EXAMINATION: VITAL SIGNS: Please see below. GENERAL: Pleasant and cooperative. No acute distress. thin HEENT: PERRL. Extraocular movements intact. Clear conjunctiva CARDIOVASCULAR: Irregular rate and rhythm. No murmurs, rubs, or gallops LUNGS: Clear to auscultation bilaterally. No wheezes. +rhonchi ABDOMEN: Soft, nontender, nondistended. Positive bowel sounds. Normal active bowel sounds NEUROLOGICAL: Alert and oriented times three. Cranial nerves II through XII grossly intact. Sensation grossly intact LUE resting and essential tremor with mild cogwheel rigidity, RUE essential tremor EXTREMITIES: 5\5 strength bilateral upper extremities 5\5 strength right lower extremity. 5/5 strength in left lower extremity. SKIN: right calf with mild swelling, no erythema, no warmth- ulcer healing ASSESSMENT:88-year-old with past medical history of Afib who presents status post recent URI with fall and RLE cellulitis PLAN: 1. 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 Neuro: bilateral tremors likely due to Avelox, will monitor, LUE tremor chronic in nature with dysphagia will monitor for parkinsonian features 3. CArdio: Pmh Afib on Xarelto, c/u digoxin and Metoprolol -CHF- c/u Torsemide -HTN c/u Norvas and Monopril- medicine consulted to assist in management 4. resp: recent CAP, will d/c Avelox due to worsening tremors, c/u incentive spirometry, will d/c Duonebs as this too is contributing to tremors -c/u guaifenasin 5. ID: RLE cellulitis, c/u renally doses Bactrim, monitor Network Intelligence Analyst 6. : monitor PVRs 7. DVT ppx: on xarelto 8. Skin: optifoam to right calf ulcer 9. GI ppx: Protonix 10. Dispo: 03/28/19 to home, progressing towards goals Allergies Coded Allergies: benzonatate (Verified Allergy, Severe, THROAT CLOSING, 03/15/19) Penicillins (Verified Allergy, Mild, RASH, 03/15/19) bee venom protein (honey bee) (Verified Allergy, Mild, RASH, 03/15/19) insect venom (Verified Allergy, Mild, RASH, 03/16/19) iodine (Verified Allergy, Mild, RASH, 03/15/19) povidone (Verified Allergy, Mild, RASH, 03/15/19) procaine (Verified Allergy, Unknown, 03/15/19) moxifloxacin (Verified Adverse Reaction, Intermediate, TREMMOR, 03/22/19) codeine (Verified Adverse Reaction, Mild, CLIMBS THE WALL , 03/15/19) turkey (Verified Adverse Reaction, Mild, NAUSEA, 03/15/19) Vital Signs Vital Signs Date Time Temp Pulse Resp B/P (MAP) Pulse Ox O2 Delivery O2 Flow Rate FiO2 03/22/19 08:06 74 144/63 03/22/19 05:37 98.1 18 95 Laboratory Data CBC/BMP Laboratory Tests 03/22/19 07:19 Red Blood Count 3.58 L, Mean Corpuscular Volume 89.9, Mean Corpuscular Hemoglobin 29.3, Mean Corpuscular Hemoglobin Concent 32.6, Red Cell Distribution Width 14.0, Calcium Level 8.2 L Labs 24H Laboratory Tests 2 03/22/19 07:19: Nucleated Red Blood Cells % (auto) 0.0, Anion Gap 6L, Glomerular Filtration Rate 33.3, Blood Urea Nitrogen 26H, Creatinine 1.56H, Sodium Level 140, Potassium Level 5.0, Chloride Level 107, Carbon Dioxide Level 27, Calcium Level 8.2L Current Medications Current Medications Current Medications Acetaminophen (Tylenol Tab) 975 mg QHS PO Last administered on 03/21/19 21:42; Start 03/21/19 at 21:00 Albuterol/ Ipratropium (Duoneb (Ipr 0.5mg/Alb 2.5mg)) 3 ml RTID NEB Last administered on 03/22/19 07:42; Start 03/21/19 at 14:00 Amlodipine Besylate (Norvasc) 10 mg QHS PO Last administered on 03/21/19 21:43; Start 03/20/19 at 21:00 Atorvastatin Calcium (Lipitor) 20 mg QHS PO Last administered on 03/21/19 21:42; Start 03/20/19 at 21:00 Digoxin (Lanoxin) 0.125 mg DAILY PO Last administered on 03/22/19 08:05; Start 03/21/19 at 09:00 Docusate Sodium (Colace) 100 mg BID PO Last administered on 03/20/19 20:27; Start 03/20/19 at 21:00 Fosinopril Sodium (Monopril) 20 mg BID PO Last administered on 03/22/19 08:05; Start 03/20/19 at 21:00 Guaifenesin (Robitussin Tab) 400 mg TID PO Last administered on 03/22/19 08:04; Start 03/21/19 at 16:00 Levalbuterol HCl (Xopenex Neb) 1.25 mg Q1HP PRN INH SHORTNESS OF BREATH; Start 03/20/19 at 15:45 Metoprolol Succinate (TopROL XL) 50 mg BID PO Last administered on 03/22/19 08:06; Start 03/20/19 at 21:00 Moxifloxacin HCl (Avelox) 400 mg DAILY@06 PO Last administered on 03/21/19 05:18; Start 03/21/19 at 06:00; Stop 03/21/19 at 11:15; Status DC Rivaroxaban (Xarelto) 20 mg DAILY@1800 PO Last administered on 03/21/19 17:44; Start 03/20/19 at 18:00 Torsemide (Demadex) 20 mg QAM PO Last administered on 03/22/19 08:04; Start 03/21/19 at 09:00 Trimethoprim/ Sulfamethoxazole (Bactrim Ds, Septra Ds 160mg/ 800mg) 1 tab DAILY PO Last administered on 03/22/19at 08:04; Start 03/21/19 at 09:00; Stop 03/24/19 at 09:01 BONY FORD MD Mar 22, 2019 11:31
[2019-03-22 14:00] VITALS: BP 129/60
[2019-03-22] MEDS ORDERED: **NOTE PATIENT COMMENT** MISC XX SCH (17:15)
--- NOTE | 2019-03-22 17:36 | IPN ---
DATE: 03/22/2019 Iliana's tremors have improved as we have discontinued the Avelox. She said these actually started with the intravenous Avelox up on the floor. Vital signs stable at 129/60. She is alert and conversant. There is a coarse tremor of the hands, but it is better than yesterday. There is no axial tremor anymore. Moves arms and legs with equal strength. LABORATORY DATA: CBC, BMP looked unremarkable. IMPRESSION: 1. Tremor, probably from her Avelox. This is slowly improving. She did have a baseline tremor previously, but it was much worse on the Avelox. 2. Hypertensive heart disease. Blood pressure looks normal. 3. Atrial fibrillation. Rate is controlled. She is on Xarelto.
[2019-03-22] MEDS: RIVAROXABAN 20 MG TAB (XARELTO) PO SCH (17:51)
[2019-03-22 20:00] VITALS: BP_SYST 13; BP_SYST 143; BP_DIAS 57
[2019-03-22] MEDS: ACETAMINOPHEN 325 MG TAB PO SCH (21:18)
[2019-03-22] MEDS: ATORVASTATIN 20 MG TAB PO SCH (21:20)
[2019-03-22] MEDS: amLODIPine 10 MG TAB PO SCH (21:22)
[2019-03-23 06:00] VITALS: BP 145/60
[2019-03-23 07:50] LABS: CALCIUM LEVEL 8.3 MG/DL (8.8-10.2); CREATININE FOR GFR 1.36 MG/DL (0.55-1.30); POTASSIUM SERUM 5.1 MEQ/L (3.5-5.1)
[2019-03-23] MEDS: BACTRIM 160MG/800MG DS TAB PO SCH (10:28)
[2019-03-23] MEDS: DIGOXIN 0.125 MG TAB PO SCH (10:29)
[2019-03-23] MEDS: TORSEMIDE 20 MG TAB PO SCH (10:29)
[2019-03-23] MEDS: FOSINOPRIL 20 MG TAB PO SCH ×2 (10:30→21:09)
[2019-03-23] MEDS: METOPROLOL SUCC (TopROL XL) 50MG **XL** TAB PO SCH ×2 (10:30→21:00)
[2019-03-23] MEDS: guaiFENesin 200 MG TAB PO SCH (10:30)
[2019-03-23] MEDS: DOCUSATE SODIUM 100 MG CAP PO SCH ×2 (10:31→21:00)
--- NOTE | 2019-03-23 12:15 | IPNPDOC ---
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 REVIEW OF SYSTEMS: The following is a completed review of systems and has been reviewed. Review of systems otherwise unremarkable. PAIN: Patient self reports no pain EYES: Negative for recent vision loss EARS, NOSE, & THROAT: +intermittent dysphagia to solids CARDIOVASCULAR: denies chest pain or palpitations PULMONARY: Negative. Denies shortness of breath, improving cough GASTROINTESTINAL: Negative for diarrhea/constipation GENITOURINARY:no dysuria MUSCULOSKELETAL: RLE weakness NEUROLOGICAL: L>R upper extremity tremor SKIN: Right calf ulcer with swelling PSYCHIATRIC: Unremarkable All other review of systems found to be negative. PHYSICAL EXAMINATION: VITAL SIGNS: Please see below. GENERAL: Pleasant and cooperative. No acute distress. thin HEENT: PERRL. Extraocular movements intact. Clear conjunctiva CARDIOVASCULAR: Irregular rate and rhythm. No murmurs, rubs, or gallops LUNGS: Clear to auscultation bilaterally. No wheezes. no rhonchi ABDOMEN: Soft, nontender, nondistended. Positive bowel sounds. Normal active bowel sounds NEUROLOGICAL: Alert and oriented times three. Cranial nerves II through XII grossly intact. Sensation grossly intact LUE resting and essential tremor with mild cogwheel rigidity, RUE essential tremor EXTREMITIES: 5\5 strength bilateral upper extremities 5\5 strength right lower extremity. 5/5 strength in left lower extremity. no edema SKIN: right calf with mild swelling, no erythema, no warmth- ulcer healing ASSESSMENT:88-year-old with past medical history of Afib who presents status po st recent URI with fall and RLE cellulitis PLAN: 1. 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 Neuro: bilateral tremors likely due to Avelox, will monitor, LUE tremor chronic in nature with dysphagia will monitor for parkinsonian features 3. CArdio: Pmh Afib on Xarelto, c/u digoxin and Metoprolol -CHF- c/u Torsemide -HTN c/u Norvas and Monopril- medicine consulted to assist in management 4. resp: recent CAP, will d/c Avelox due to worsening tremors, c/u incentive spirometry, off Duonebs as this too is contributing to tremors -c/u guaifenasin 5. ID: RLE cellulitis, c/u renally doses Bactrim, monitor Bundle Shaker 6. : monitor PVRs 7. DVT ppx: on xarelto 8. Skin: optifoam to right calf ulcer 9. GI ppx: Protonix 10. Dispo: 03/28/19 to home, progressing towards goals, goal to be Mod-I with cane Allergies Coded Allergies: benzonatate (Verified Allergy, Severe, THROAT CLOSING, 03/15/19) Penicillins (Verified Allergy, Mild, RASH, 03/15/19) bee venom protein (honey bee) (Verified Allergy, Mild, RASH, 03/15/19) insect venom (Verified Allergy, Mild, RASH, 03/16/19) iodine (Verified Allergy, Mild, RASH, 03/15/19) povidone (Verified Allergy, Mild, RASH, 03/15/19) procaine (Verified Allergy, Unknown, 03/15/19) moxifloxacin (Verified Adverse Reaction, Intermediate, TREMMOR, 03/22/19) codeine (Verified Adverse Reaction, Mild, CLIMBS THE WALL , 03/15/19) turkey (Verified Adverse Reaction, Mild, NAUSEA, 03/15/19) Vital Signs Vital Signs Date Time Temp Pulse Resp B/P (MAP) Pulse Ox O2 Delivery O2 Flow Rate FiO2 03/23/19 10:30 68 142/64 03/23/19 06:00 97.9 18 95 Laboratory Data CBC/BMP Laboratory Tests 03/23/19 07:12 Calcium Level 8.3 L Labs 24H Laboratory Tests 2 03/23/19 07:12: Anion Gap 4L, Glomerular Filtration Rate 39.0, Blood Urea Nitrogen 21H, Creatinine 1.36H, Sodium Level 139, Potassium Level 5.1, Chloride Level 108H, Carbon Dioxide Level 27, Calcium Level 8.3L Current Medications Current Medications Current Medications Acetaminophen (Tylenol Tab) 975 mg QHS PO Last administered on 03/22/19at 21:18; Start 03/21/19 at 21:00 Albuterol/ Ipratropium (Duoneb (Ipr 0.5mg/Alb 2.5mg)) 3 ml RTID NEB Last administered on 03/22/19 07:42; Start 03/21/19 at 14:00; Stop 03/22/19 at 12:54; Status DC Amlodipine Besylate (Norvasc) 10 mg QHS PO Last administered on 03/22/19 21:22; Start 03/20/19 at 21:00 Atorvastatin Calcium (Lipitor) 20 mg QHS PO Last administered on 03/22/19 21:20; Start 03/20/19 at 21:00 Digoxin (Lanoxin) 0.125 mg DAILY PO Last administered on 03/23/19 10:29; Start 03/21/19 at 09:00 Docusate Sodium (Colace) 100 mg BID PO Last administered on 03/20/19 20:27; Start 03/20/19 at 21:00 Fosinopril Sodium (Monopril) 20 mg BID PO Last administered on 03/23/19 10:30; Start 03/20/19 at 21:00 Guaifenesin (Robitussin Tab) 400 mg TID PO Last administered on 03/22/19 15:51; Start 03/21/19 at 16:00 Levalbuterol HCl (Xopenex Neb) 1.25 mg Q1HP PRN INH SHORTNESS OF BREATH; Start 03/20/19 at 15:45 Metoprolol Succinate (TopROL XL) 50 mg BID PO Last administered on 03/23/19 10:30; Start 03/20/19 at 21:00 Moxifloxacin HCl (Avelox) 400 mg DAILY@06 PO Last administered on 03/21/19 05:18; Start 03/21/19 at 06:00; Stop 03/21/19 at 11:15; Status DC Non-Formulary Medication ( See Comment Field Below ) ASDIRECTED XX ; Start 03/22/19 at 17:15; Stop 03/22/19 at 17:16; Status DC Rivaroxaban (Xarelto) 20 mg DAILY@1800 PO Last administered on 03/22/19 17:51; Start 03/20/19 at 18:00 Torsemide (Demadex) 20 mg QAM PO Last administered on 03/23/19 10:29; Start 03/21/19 at 09:00 Trimethoprim/ Sulfamethoxazole (Bactrim Ds, Septra Ds 160mg/ 800mg) 1 tab DAILY PO Last administered on 03/23/19at 10:28; Start 03/21/19 at 09:00; Stop 03/24/19 at 09:01 BONY FORD MD Mar 23, 2019 12:15
[2019-03-23 14:00] VITALS: BP 139/63
[2019-03-23] MEDS: RIVAROXABAN 20 MG TAB (XARELTO) PO SCH (17:57)
[2019-03-23 20:30] VITALS: BP 148/67
[2019-03-23] MEDS: ATORVASTATIN 20 MG TAB PO SCH (21:07)
[2019-03-23] MEDS: amLODIPine 10 MG TAB PO SCH (21:09)
[2019-03-23] MEDS: ACETAMINOPHEN 325 MG TAB PO SCH (21:10)
[2019-03-24 06:00] VITALS: BP 154/60
[2019-03-24 08:02] LABS: BASO # 0.1 10^3/uL (0.0-0.2); BASO % 1.1 % (0.0-1.0); EOS # 0.2 10^3/uL (0.0-0.50); EOS % 3.5 % (0.0-3.0); HEMATOCRIT 35.2 % (36.0-47.0); HEMOGLOBIN 11.4 g/dl (12.0-15.5); LYMPH # 0.8 10^3/uL (1.5-4.5); LYMPH % 14.6 % (24.0-44.0); MEAN CORPUSCULAR HEMOGLOBIN 29.9 pg (27.0-33.0); MEAN CORPUSCULAR HGB CONC 32.4 g/dl (32.0-36.5); MEAN CORPUSCULAR VOLUME 92.4 fl (80.0-96.0); MONO # 0.6 10^3/uL (0.0-0.8); MONO % 11.9 % (0.0-5.0); NEUTROPHILS # 3.7 10^3/uL (1.8-7.7); NEUTROPHILS % 68.7 % (36.0-66.0); PLATELET COUNT, AUTOMATED 184 10^3/uL (150-450); RED BLOOD COUNT 3.81 10^6/uL (4.00-5.40); WHITE BLOOD COUNT 5.4 10^3/uL (4.0-10.0)
[2019-03-24 08:37] LABS: CALCIUM LEVEL 8.5 MG/DL (8.8-10.2); CREATININE FOR GFR 1.44 MG/DL (0.55-1.30); GLOMERULAR FILTRATION RATE 36.5 (>32); MAGNESIUM LEVEL 2.7 MG/DL (1.8-2.4); POTASSIUM SERUM 5.1 MEQ/L (3.5-5.1)
[2019-03-24] MEDS: METOPROLOL SUCC (TopROL XL) 50MG **XL** TAB PO SCH ×2 (09:00→20:09)
[2019-03-24] MEDS: DOCUSATE SODIUM 100 MG CAP PO SCH ×2 (09:00→20:09)
[2019-03-24] MEDS: TORSEMIDE 20 MG TAB PO SCH (09:23)
[2019-03-24] MEDS: FOSINOPRIL 20 MG TAB PO SCH ×2 (09:23→20:08)
[2019-03-24] MEDS: DIGOXIN 0.125 MG TAB PO SCH (09:23)
[2019-03-24] MEDS: BACTRIM 160MG/800MG DS TAB PO SCH (09:24)
--- NOTE | 2019-03-24 10:52 | IPNPDOC ---
Text Note Date of Service The patient was seen on 03/24/19. NOTE Subjective: Patient is an 88-year-old female with a PMHx of HTN, A. fib (on Xarelto) s/p PM who had a recent URTI and RLE cellulitis / ulcer. She presented to the ER on 03/16/19 and was found to have evidence of pneumonia as well as cellulitis of right lower extremity. She was admitted to the hospitalist service for further evaluation and treatment. She was subsequently transitioned to acute rehabilitation unit on 03/20/2019. Patient was seen and examined at the bedside. , Currently patient has no new complaints. She denies any cough or shortness of breath. Denies chest pain or palpitations. Denies nausea, vomiting, abdominal pain, constipation, diarrhea or discomfort with urination. Patient reports that her lower extremities are looking better and are not in any significant pain. Objective: Vitals (See below) General: Lying in bed, no acute distress, comfortable, AAOx3 HEENT: NC, AT CVS: +S1S2 Lungs: Fair air entry b/l, -w/r/r Abdomen: Soft, ND, NT Extremities: Trace pitting edema, - Calf tenderness Assessment and plan: Deconditioning - Has been progressing with physical therapy s/p Pneumonia - s/p Moxifloxacin Cellulitis of RLE, with RLE ulcer - Currently on TMP-SMX s/p Tremor - possibly 2/2 Moxifloxacin - This appears to have resolved Atrial fibrillation - c/w rate / rhythm control with metoprolol and digoxin - c/w full anticoagulation with Xarelto HTN - BP is moderately controlled - c/w Amlodipine, Metoprolol, Fosinopril, Torsemide DLP - c/w Atorvastatin DVT prophylaxis - c/w full anticoagulation with Xarelto VS,Fishbone, I+O VS, Fishbone, I+O Laboratory Tests 03/24/19 07:51 Red Blood Count 3.81 L, Mean Corpuscular Volume 92.4, Mean Corpuscular Hemoglobin 29.9, Mean Corpuscular Hemoglobin Concent 32.4, Red Cell Distribution Width 13.9, Neutrophils (%) (Auto) 68.7 H, Lymphocytes (%) (Auto) 14.6 L, Monoc ytes (%) (Auto) 11.9 H, Eosinophils (%) (Auto) 3.5 H, Basophils (%) (Auto) 1.1 H, Neutrophils # (Auto) 3.7, Lymphocytes # (Auto) 0.8 L, Monocytes # (Auto) 0.6, Eosinophils # (Auto) 0.2, Basophils # (Auto) 0.1, Calcium Level 8.5 L Vital Signs Date Time Temp Pulse Resp B/P (MAP) Pulse Ox O2 Delivery O2 Flow Rate FiO2 03/24/19 09:23 154/60 03/24/19 09:23 61 03/24/19 06:00 98.6 18 99 I&O- Last 24 Hours up to 6 AM 03/24/19 06:00 Intake Total 960 ml Balance 960 ml JOVANI ARECHIGA MD Mar 24, 2019 10:52
[2019-03-24 14:00] VITALS: BP 157/64
[2019-03-24] MEDS: RIVAROXABAN 20 MG TAB (XARELTO) PO SCH (17:47)
[2019-03-24 20:00] VITALS: BP 163/63
[2019-03-24] MEDS: amLODIPine 10 MG TAB PO SCH (20:08)
[2019-03-24] MEDS: ATORVASTATIN 20 MG TAB PO SCH (20:08)
[2019-03-24] MEDS: ACETAMINOPHEN 325 MG TAB PO SCH (20:14)
[2019-03-25 06:00] VITALS: BP 142/54
[2019-03-25] MEDS: DIGOXIN 0.125 MG TAB PO SCH (09:12)
[2019-03-25] MEDS: FOSINOPRIL 20 MG TAB PO SCH ×2 (09:12→20:31)
[2019-03-25] MEDS: DOCUSATE SODIUM 100 MG CAP PO SCH ×2 (09:12→20:31)
[2019-03-25] MEDS: METOPROLOL SUCC (TopROL XL) 50MG **XL** TAB PO SCH ×2 (09:13→20:30)
[2019-03-25] MEDS: TORSEMIDE 20 MG TAB PO SCH (09:13)
--- NOTE | 2019-03-25 10:18 | IPNPDOC ---
Text Note Date of Service The patient was seen on 03/25/19. NOTE Subjective: Patient is an 88-year-old female with a PMHx of HTN, A. fib (on Xarelto) s/p PM who had a recent URTI and RLE cellulitis / ulcer. She presented to the ER on 03/16/19 and was found to have evidence of pneumonia as well as cellulitis of right lower extremity. She was admitted to the hospitalist service for further evaluation and treatment. She was subsequently transitioned to acute rehabilitation unit on 03/20/2019. Patient was seen and examined at the bedside. Currently patient has no new complaints. She has been working with physical therapy and has tried stairs. Denies any chest pain, shortness of breath or palpitations. Denies nausea, vomiting, abdominal pain, constipation, diarrhea, or urinary discomfort. Patient reports her lower extremity is doing better. Objective: Vitals (See below) General: Lying in bed, no acute distress, comfortable, AAOx3 HEENT: NC, AT CVS: +S1S2 Lungs: Air entry is fair bilaterally without wheezing, rhonchi or rales Abdomen: Remains soft without distention or tenderness Extremities: No significant edema is appreciated, - Calf tenderness Assessment and plan: Deconditioning - Has been progressing with physical therapy s/p Pneumonia - s/p Moxifloxacin Cellulitis of RLE, with RLE ulcer - s/p TMP-SMX - c/w dressing changes as scheduled s/p Tremor - possibly 2/2 Moxifloxacin - Has not complained of any further tremors Atrial fibrillation - c/w rate / rhythm control with metoprolol and digoxin - c/w full anticoagulation with Xarelto HTN - BP is moderately controlled - c/w Amlodipine, Metoprolol, Fosinopril, Torsemide DLP - c/w Atorvastatin DVT prophylaxis - c/w full anticoagulation with Xarelto Disposition: - Anticipate discharge at some point this week given her progression VS,[place], I+O VS, Fishbone, I+O Vital Signs Date Time Temp Pulse Resp B/P (MAP) Pulse Ox O2 Delivery O2 Flow Rate FiO2 03/25/19 09:13 74 142/54 03/25/19 06:00 98.0 18 95 I&O- Last 24 Hours up to 6 AM 03/25/19 06:00 Intake Total 930 ml Balance 930 ml ARECHIGA,VIJESH MD Mar 25, 2019 10:18
[2019-03-25 14:00] VITALS: BP 135/58
[2019-03-25] MEDS: RIVAROXABAN 20 MG TAB (XARELTO) PO SCH (17:24)
[2019-03-25 20:00] VITALS: BP 124/57
[2019-03-25] MEDS: ATORVASTATIN 20 MG TAB PO SCH (20:31)
[2019-03-25] MEDS: amLODIPine 10 MG TAB PO SCH (20:32)
[2019-03-25] MEDS: ACETAMINOPHEN 325 MG TAB PO SCH (21:00)
[2019-03-26 05:45] VITALS: BP 145/69
[2019-03-26 07:15] LABS: BASO % 0.7 % (0.0-1.0); EOS # 0.2 10^3/uL (0.0-0.50); EOS % 3.3 % (0.0-3.0); HEMATOCRIT 34.8 % (36.0-47.0); HEMOGLOBIN 11.2 g/dl (12.0-15.5); LYMPH % 17.5 % (24.0-44.0); MEAN CORPUSCULAR HEMOGLOBIN 29.6 pg (27.0-33.0); MEAN CORPUSCULAR HGB CONC 32.2 g/dl (32.0-36.5); MEAN CORPUSCULAR VOLUME 91.8 fl (80.0-96.0); MONO # 0.6 10^3/uL (0.0-0.8); MONO % 11.1 % (0.0-5.0); NEUTROPHILS # 3.7 10^3/uL (1.8-7.7); PLATELET COUNT, AUTOMATED 167 10^3/uL (150-450); RED BLOOD COUNT 3.79 10^6/uL (4.00-5.40); WHITE BLOOD COUNT 5.5 10^3/uL (4.0-10.0)
[2019-03-26 07:41] LABS: CALCIUM LEVEL 8.5 MG/DL (8.8-10.2); CREATININE FOR GFR 1.34 MG/DL (0.55-1.30); GLOMERULAR FILTRATION RATE 39.6 (>32); POTASSIUM SERUM 4.7 MEQ/L (3.5-5.1)
[2019-03-26] MEDS: DOCUSATE SODIUM 100 MG CAP PO SCH ×3 (08:15→20:49)
[2019-03-26] MEDS: TORSEMIDE 20 MG TAB PO SCH (08:16)
[2019-03-26] MEDS: METOPROLOL SUCC (TopROL XL) 50MG **XL** TAB PO SCH (08:16)
[2019-03-26] MEDS: FOSINOPRIL 20 MG TAB PO SCH ×2 (08:16→20:52)
[2019-03-26] MEDS: DIGOXIN 0.125 MG TAB PO SCH (08:18)
--- NOTE | 2019-03-26 10:24 | IPNPDOC ---
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 REVIEW OF SYSTEMS: The following is a completed review of systems and has been reviewed. Review of systems otherwise unremarkable. PAIN: Patient self reports no pain EYES: Negative for recent vision loss EARS, NOSE, & THROAT: +intermittent dysphagia to solids CARDIOVASCULAR: denies chest pain or palpitations PULMONARY: Negative. Denies shortness of breath, improving cough GASTROINTESTINAL: Negative for diarrhea/constipation GENITOURINARY:no dysuria MUSCULOSKELETAL: RLE weakness NEUROLOGICAL: L>R upper extremity tremor (improving) SKIN: Right calf ulcer with swelling PSYCHIATRIC: Unremarkable All other review of systems found to be negative. PHYSICAL EXAMINATION: VITAL SIGNS: Please see below. GENERAL: Pleasant and cooperative. No acute distress. thin HEENT: PERRL. Extraocular movements intact. Clear conjunctiva CARDIOVASCULAR: Irregular rate and rhythm. No murmurs, rubs, or gallops LUNGS: Clear to auscultation bilaterally. No wheezes. no rhonchi ABDOMEN: Soft, nontender, nondistended. Positive bowel sounds. Normal active bowel sounds NEUROLOGICAL: Alert and oriented times three. Cranial nerves II through XII grossly intact. Sensation grossly intact LUE resting and essential tremor with mild cogwheel rigidity (improving), RUE essential tremor (improving) EXTREMITIES: 5\5 strength bilateral upper extremities 5\5 strength right lower extremity. 5/5 strength in left lower extremity. no edema SKIN: right calf with mild swelling, no erythema, no warmth- ulcer healing ASSESSMENT:88-year-old with past medical history of Afib who presents status post recent URI with fall and RLE cellulitis PLAN: 1. 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 Neuro: drug induced tremors bilateral tremors likely due to Avelox improving, LUE tremor still present though mild and gait not parkinsonian, overall function greatly improved 3. CArdio: Pmh Afib on Xarelto, c/u digoxin and will decrease Metoprolol from 50-->25mg BID as heart rate low -CHF- c/u Torsemide, will start fluid restriction 1800cc now that Administrative Aide function improving off of Bactrim -HTN c/u Norvas and Monopril- medicine consulted to assist in management 4. resp: recent CAP, d/c'ed Avelox due to worsening tremors, c/u incentive spirometry, off Duonebs as this too is contributing to tremors -c/u guaifenasin 5. 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 : monitor PVRs 7. DVT ppx: on xarelto 8. Skin: optifoam to right calf ulcer 9. GI ppx: Protonix 10. Dispo: 03/28/19 to home, progressing towards goals, goal to be Mod-I with cane Allergies Coded Allergies: benzonatate (Verified Allergy, Severe, THROAT CLOSING, 03/15/19) Penicillins (Verified Allergy, Mild, RASH, 03/15/19) bee venom protein (honey bee) (Verified Allergy, Mild, RASH, 03/15/19) insect venom (Verified Allergy, Mild, RASH, 03/16/19) iodine (Verified Allergy, Mild, RASH, 03/15/19) povidone (Verified Allergy, Mild, RASH, 03/15/19) procaine (Verified Allergy, Unknown, 03/15/19) moxifloxacin (Verified Adverse Reaction, Intermediate, TREMMOR, 03/22/19) codeine (Verified Adverse Reaction, Mild, CLIMBS THE WALL , 03/15/19) turkey (Verified Adverse Reaction, Mild, NAUSEA, 03/15/19) Vital Signs Vital Signs Date Time Temp Pulse Resp B/P (MAP) Pulse Ox O2 Delivery O2 Flow Rate FiO2 03/26/19 08:18 62 03/26/19 08:16 145/69 03/26/19 05:45 98.0 18 95 Laboratory Data CBC/BMP Laboratory Tests 03/26/19 06:50 Red Blood Count 3.79 L, Mean Corpuscular Volume 91.8, Mean Corpuscular Hemoglobin 29.6, Mean Corpuscular Hemoglobin Concent 32.2, Red Cell Distribution Width 13.7, Neutrophils (%) (Auto) 67.0 H, Lymphocytes (%) (Auto) 17.5 L, Monocytes (%) (Auto) 11.1 H, Eosinophils (%) (Auto) 3.3 H, Basophils (%) (Auto) 0.7, Neutrophils # (Auto) 3.7, Lymphocytes # (Auto) 1.0 L, Monocytes # (Auto) 0.6, Eosinophils # (Auto) 0.2, Basophils # (Auto) 0.0, Calcium Level 8.5 L Labs 24H Laboratory Tests 2 03/26/19 06:50: Immature Granulocyte % (Auto) 0.4, White Blood Count 5.5, Red Blood Count 3.79L, Hemoglobin 11.2L, Hematocrit 34.8L, Mean Corpuscular Volume 91.8, Mean Corpuscular Hemoglobin 29.6, Mean Corpuscular Hemoglobin Concent 32.2, Red Cell Distribution Width 13.7, Platelet Count 167, Neutrophils (%) (Auto) 67.0H, Lymphocytes (%) (Auto) 17.5L, Monocytes (%) (Auto) 11.1H, Eosinophils (%) (Auto) 3.3H, Basophils (%) (Auto) 0.7, Neutrophils # (Auto) 3.7, Lymphocytes # (Auto) 1.0L, Monocytes # (Auto) 0.6, Eosinophils # (Auto) 0.2, Basophils # (Auto) 0.0, Nucleated Red Blood Cells % (auto) 0.0, Anion Gap 4L, Glomerular Filtration Rate 39.6, Blood Urea Nitrogen 22H, Creatinine 1.34H, Sodium Level 138, Potassium Level 4.7, Chloride Level 106, Carbon Dioxide Level 28, Calcium Level 8.5L Current Medications Current Medications Current Medications Acetaminophen (Tylenol Tab) 975 mg QHS PO Last administered on 03/24/19at 20:14; Start 03/21/19 at 21:00 Albuterol/ Ipratropium (Duoneb (Ipr 0.5mg/Alb 2.5mg)) 3 ml RTID NEB Last administered on 03/22/19at 07:42; Start 03/21/19 at 14:00; Stop 03/22/19 at 12:54; Status DC Amlodipine Besylate (Norvasc) 10 mg QHS PO Last administered on 03/25/19 20:32; Start 03/20/19 at 21:00 Atorvastatin Calcium (Lipitor) 20 mg QHS PO Last administered on 6/23/19at 20:31; Start 03/20/19 at 21:00 Digoxin (Lanoxin) 0.125 mg DAILY PO Last administered on 03/26/19 08:18; Start 03/21/19 at 09:00 Docusate Sodium (Colace) 100 mg BID PO Last administered on 03/25/19 09:12; Start 03/20/19 at 21:00 Fosinopril Sodium (Monopril) 20 mg BID PO Last administered on 03/26/19 08:16; Start 03/20/19 at 21:00 Guaifenesin (Robitussin Tab) 400 mg TID PO Last administered on 03/22/19 15:51 ; Start 03/21/19 at 16:00; Stop 03/23/19 at 16:31; Status DC Levalbuterol HCl (Xopenex Neb) 1.25 mg Q1HP PRN INH SHORTNESS OF BREATH; Start 03/20/19 at 15:45 Metoprolol Succinate (TopROL XL) 50 mg BID PO Last administered on 03/26/19 08:16; Start 03/20/19 at 21:00 Moxifloxacin HCl (Avelox) 400 mg DAILY@06 PO Last administered on 03/21/19 05:18; Start 03/21/19 at 06:00; Stop 03/21/19 at 11:15; Status DC Non-Formulary Medication ( See Comment Field Below ) ASDIRECTED XX ; Start 03/22/19 at 17:15; Stop 03/22/19 at 17:16; Status DC Rivaroxaban (Xarelto) 20 mg DAILY@1800 PO Last administered on 03/25/19 17:24; Start 03/20/19 at 18:00 Torsemide (Demadex) 20 mg QAM PO Last administered on 03/26/19 08:16; Start 03/21/19 at 09:00 Trimethoprim/ Sulfamethoxazole (Bactrim Ds, Septra Ds 160mg/ 800mg) 1 tab DAILY PO Last administered on 03/24/19 09:24; Start 03/21/19 at 09:00; Stop 03/24/19 at 09:01; Status DC BONY FORD MD Mar 26, 2019 10:24
--- NOTE | 2019-03-26 10:28 | IPNPDOC ---
Text Note Date of Service The patient was seen on 03/26/19. NOTE Patient denies any discomfort at this time. Feels cellulitis is resolving and pneumonia is resolved. She denies any chest pain, shortness of breath, chills, fever, malaise. GENERAL: up to chair at bedside in NAD SKIN : Warm, dry, discoloration to BLE consistent with vascular insufficiency HEENT: Atraumatic, normocephalic, PERRL, moist mucous membrane CV: regular rate and rhythm, S1S2, no JVD, BLE edema, distal pulses not palpable RESP: CTAB, no accessory muscle use noted ABDOMEN: BS+, non distended, non tender MS: no joint deformities NEURO: Alert and oriented x 3, CN2-12 grossly intact PSYCH: no anxiety or agitation, appropriate mood and affect. ASSESSMENT AND PLAN Pneumonia -Completed course of antibiotic therapy with moxifloxacin Right lower extremity cellulitis -Completed course of antibiotic therapy with Bactrim Atrial fibrillation -Rate controlled with metoprolol, digoxin -Anticoagulation with Xarelto CKD 3 -cautious diuresis -monitoring of renal indices -avoid hypotension Hypertension -Controlled, continue Norvasc, beta figueroa, MARIA DEL CARMEN inhibitor DVT prophylaxis -Fully anticoagulated VS,Fishbone, I+O VS, Fishbone, I+O Laboratory Tests 03/26/19 06:50 Red Blood Count 3.79 L, Mean Corpuscular Volume 91.8, Mean Corpuscular Hemoglobin 29.6, Mean Corpuscular Hemoglobin Concent 32.2, Red Cell Distribution Width 13.7, Neutrophils (%) (Auto) 67.0 H, Lymphocytes (%) (Auto) 17.5 L, M onocytes (%) (Auto) 11.1 H, Eosinophils (%) (Auto) 3.3 H, Basophils (%) (Auto) 0.7, Neutrophils # (Auto) 3.7, Lymphocytes # (Auto) 1.0 L, Monocytes # (Auto) 0.6, Eosinophils # (Auto) 0.2, Basophils # (Auto) 0.0, Calcium Level 8.5 L Vital Signs Date Time Temp Pulse Resp B/P (MAP) Pulse Ox O2 Delivery O2 Flow Rate FiO2 03/26/19 08:18 62 03/26/19 08:16 145/69 03/26/19 05:45 98.0 18 95 I&O- Last 24 Hours up to AM 03/26/19 06:00 Intake Total 480 ml Balance 480 ml RENETTA LUGO [facility] Mar 26, 2019 10:28
[2019-03-26 14:58] VITALS: BP 150/73
[2019-03-26] MEDS: RIVAROXABAN 20 MG TAB (XARELTO) PO SCH (17:19)
[2019-03-26 20:09] VITALS: BP 153/63
[2019-03-26] MEDS: ATORVASTATIN 20 MG TAB PO SCH (20:50)
[2019-03-26] MEDS: amLODIPine 10 MG TAB PO SCH (20:52)
[2019-03-26] MEDS: METOPROLOL SUCC *XL* 25MG TAB (TopROL *XL*) PO SCH (20:53)
[2019-03-26] MEDS: ACETAMINOPHEN 325 MG TAB PO SCH (21:00)
[2019-03-27 05:48] VITALS: BP 141/65
[2019-03-27] MEDS: DIGOXIN 0.125 MG TAB PO SCH (08:07)
[2019-03-27] MEDS: DOCUSATE SODIUM 100 MG CAP PO SCH ×2 (08:07→20:20)
[2019-03-27] MEDS: TORSEMIDE 20 MG TAB PO SCH (08:07)
[2019-03-27] MEDS: FOSINOPRIL 20 MG TAB PO SCH ×2 (08:07→20:19)
[2019-03-27] MEDS: METOPROLOL SUCC *XL* 25MG TAB (TopROL *XL*) PO SCH ×2 (08:08→20:19)
[2019-03-27] MEDS ORDERED: ATOR1TAB21 PO (09:56)
[2019-03-27] MEDS ORDERED: METO1TAB32 PO (09:56)
[2019-03-27] MEDS ORDERED: TORS20TA2 PO (09:56)
[2019-03-27] MEDS ORDERED: AMLO10TA5 PO (09:56)
[2019-03-27] MEDS ORDERED: DIGO0.12 PO (09:56)
[2019-03-27] MEDS ORDERED: FOSI20TA60 PO (09:56)
[2019-03-27] MEDS ORDERED: XARE20TA PO (09:56)
[2019-03-27 14:00] VITALS: BP 130/53
[2019-03-27] MEDS: RIVAROXABAN 20 MG TAB (XARELTO) PO SCH (17:16)
[2019-03-27 20:07] VITALS: BP 139/58
[2019-03-27] MEDS: ATORVASTATIN 20 MG TAB PO SCH (20:19)
[2019-03-27] MEDS: amLODIPine 10 MG TAB PO SCH (20:19)
[2019-03-27] MEDS: ACETAMINOPHEN 325 MG TAB PO SCH (21:00)
[2019-03-28 05:59] VITALS: BP 133/61
[2019-03-28] MEDS: METOPROLOL SUCC *XL* 25MG TAB (TopROL *XL*) PO SCH ×2 (08:26→10:09)
[2019-03-28] MEDS: TORSEMIDE 20 MG TAB PO SCH (10:08)
[2019-03-28] MEDS: FOSINOPRIL 20 MG TAB PO SCH (10:08)
[2019-03-28 10:09] VITALS: BP 133/61
[2019-03-28] MEDS: DOCUSATE SODIUM 100 MG CAP PO SCH (10:09)
[2019-03-28] MEDS: DIGOXIN 0.125 MG TAB PO SCH (10:09)
--- NOTE | 2019-03-28 18:26 | PMRDS ---
DATE OF ADMISSION: 03/20/2019 DATE OF DISCHARGE: 03/28/2019 CHIEF COMPLAINT/DISCHARGE DIAGNOSIS: Right lower extremity cellulitis with tremors. HISTORY OF PRESENT ILLNESS: This is an 88-year-old female with past medical history of hypertension, atrial fibrillation, on Xarelto with pacemaker, who had a recent upper respiratory infection (URI) without antibiotic treatments, who fell at home and developed a right lower extremity ulcer and presented to the [facility] Emergency Department (ED) on 03/16/2019 with difficulty walking, nonproductive cough, and dyspnea on exertion. Chest x-ray showed "new pleural angle blunting on the left, pacemaker, and mild cardiomegaly," and CT chest showed "pulmonary hyperinflation with minimal diffuse bullous change and coarse interstitium, consistent with chronic obstructive pulmonary disease (COPD). There is minimal fibroatelectatic change extending into the lingula, and there is minimal scattered bronchiectasis...minimal patchy infiltrates in the left lower lobe consistent with pneumonia...minimal bilateral pleural effusions, cardiomegaly, and pacemaker in position, and some degree of congestive failure is not excluded." She was started on intravenous (IV) clindamycin for her right lower extremity cellulitis and switched to renally dosed Bactrim, as she was concerned it made her tremors worse, but she reports having developed left upper extremity within the past year. She was started on Avelox for suspected community-acquired pneumonia, evaluated by therapy, and found to have deficits in gait and activities of daily living (ADLs), also reporting a recent episode of dysphagia with solids and deemed medically appropriate for discharge to acute rehabilitation unit (ARU). PAST MEDICAL HISTORY: As per history of present illness (HPI). HOSPITAL COURSE: Patient was admitted and enrolled in a comprehensive physical therapy (PT)/occupational therapy (OT), speech/language pathology program. She received 24-hour nursing supervision, and weekly team meetings were held to discuss her progress. The patient during her hospital course had severe bilateral upper tremors, ultimately deemed to be by reaction to Avelox, and the tremors did gradually improve with the discontinuation of this medication. Tremors also seemed to be enhanced with the use of DuoNeb, which was also discontinued. The patient was maintained on torsemide. Finished up a course of Bactrim for cellulitis. Was eventually restarted on fluid restriction in the setting of congestive heart failure (CHF), and made quick gains in therapy. Her metoprolol dosing was decreased given her low heart rates, and she was maintained on digoxin and Xarelto for atrial fibrillation. She was deemed medically and functionally stable to return home with a quad cane. DISCHARGE MEDICATIONS: As per discharge instructions. FUNCTIONAL HISTORY UPON DISCHARGE: The patient was modified independent with a quad cane for all functional mobility, able to ambulate 500 feet, and negotiate stairs in occupational therapy. She was also modified independent for dressing, bathing, toileting. Thank you for this recommendation
== END 2019-03-28 13:00 | disposition home or self-care (01) | DRG 603 ==
LOC: M PM&R 13:50
PROVIDERS: ADMIT Physical Medicine & Rehabilitation; ATTEND Physical Medicine & Rehabilitation
DX: L03.115 Cellulitis of right lower limb (principal); L97.919 Non-pressure chronic ulcer of unspecified part of right lower leg with unspecified severity; I50.9 Heart failure, unspecified; R13.10 Dysphagia, unspecified; R25.1 Tremor, unspecified; I11.0 Hypertensive heart disease with heart failure; I48.91 Unspecified atrial fibrillation; E78.5 Hyperlipidemia, unspecified; Z88.0 Allergy status to penicillin; Z95.0 Presence of cardiac pacemaker; R26.89 Other abnormalities of gait and mobility; Z79.899 Other long term (current) drug therapy; Z88.5 Allergy status to narcotic agent; Z88.8 Allergy status to other drugs, medicaments and biological substances; Z91.038 Other insect allergy status; Z91.018 Allergy to other foods

== ENCOUNTER 2019-04-30 07:38 | Outpatient (RCR) | payer MEDICARE ==
[~2019-04-30 07:38] MED LIST changes: +FOSI20TA60 PO; +LEVA12INH INH; +METO1TAB32 PO; +MOXI400T11 PO; +SULF1TAB93 PO
== END 2019-05-02 ==
LOC: M PT 07:38
PROVIDERS: ATTEND Nurse Practitioner Family
DX: Z51.89 Encounter for other specified aftercare (principal); R26.9 Unspecified abnormalities of gait and mobility